=== PATIENT | male | born 1960 | race Caucasian/White ===

== ENCOUNTER 2019-03-02 15:38 | Emergency (ER) | payer MEDICAID ==
--- NOTE | 2019-03-02 15:32 | US ---
EXAMINATION TYPE: US venous doppler duplex LE LT DATE OF EXAM: 03/02/2019 3:21 PM COMPARISON: NONE CLINICAL HISTORY: I82.409 DEEP VEIN THROMBOSIS. Skin redness with heat, pain and swelling left leg x 2 days with calf pain; fever and chills SIDE PERFORMED: Left TECHNIQUE: The lower extremity deep venous system is examined utilizing real time linear array sonog morgan with graded compression, doppler sonography and color-flow sonography. VESSELS IMAGED: Common Femoral Vein Deep Femoral Vein Greater Saphenous Vein * Femoral Vein Popliteal Vein Small Saphenous Vein * Proximal Calf Veins (* superficial vessels) Left Leg: Is positive for non occluding DVT in mid/distal Left Popliteal Vein and upper calf veins; couple of lymph nodes seen in left groin with larger node = 5.1 x 2.4 x 1.9cm. IMPRESSION: 1. Left lower extremity deep venous thrombosis which is nonoccluding in the mid to distal popliteal v ein and extending into the calf region. 2. Irregular lymphadenopathy within the inguinal region
[2019-03-02 16:05] VITALS: PULSE 84; RESP 18
--- NOTE | 2019-03-02 16:11 | ED ---
Extremity Problem HPI - General Chief complaint: Extremity Problem,Nontraumatic Stated complaint: DVT, Sent over from ultrasound Time Seen by Provider: 03/02/19 15:58 Source: patient, RN notes reviewed, old records reviewed Mode of arrival: wheelchair Limitations: no limitations - History of Present Illness Initial comments: This is a 58-year-old male the ER for evaluation history of lymphedema vascular disease, cellulitis coming in today with significantly swollen left lower Shorty. Patient outpatient Positive for DVT. No Recent Travel History No Sick Contacts No Chest Pain or Shortness of Breath. Patient Has No Prior History of DVT and Currently Any Medications, No Recent Change in Medications No Trauma. MD Complaint: extremity pain, extremity swelling, other (Left lower) -: days(s) Location: left, lower extremity History of Same: No Radiation: none Severity scale (1-10): 6 Quality: aching Consistency: constant Improves with: nothing Worsens with: nothing Associated Symptoms: denies other symptoms - Related Data Home Medications Medication Instructions Recorded Confirmed Bisoprol/Hydrochlorothiazide 1 tab PO DAILY 03/02/19 03/02/19 [Bisoprolol-Hctz 5-6.25 mg Tab] Cetirizine HCl [Zyrtec] 10 mg PO DAILY 03/02/19 03/02/19 Losartan Potassium 50 mg PO DAILY 03/02/19 03/02/19 Meclizine [Antivert] 12.5 mg PO TID 03/02/19 03/02/19 Sulfamethoxazole/Trimethoprim 1 tab PO BID 03/02/19 03/02/19 [Bactrim DS 800-160 mg] Previous Rx's Medication Instructions Recorded Apixaban [Eliquis Starter Pack 0 mg PO DIRECTED 30 Days #1 pack 03/02/19 (for VTE)] Allergies Allergy/AdvReac Type Severity Reaction Status Date / Time No Known Allergies Allergy Verified 03/02/19 16:29 Review of Systems ROS Statement: Those systems with pertinent positive or pertinent negative responses have been documented in the HPI. ROS Other: All systems not noted in ROS Statement are negative. Past Medical History Past Medical History: Deep Vein Thrombosis (DVT), Hypertension Additional Past Medical History / Comment(s): lower ext cellulitis History of Any Multi-Drug Resistant Organisms: None Reported Past Psychological History: No Psychological Hx Reported Smoking Status: Never smoker Past Alcohol Use History: None Reported Past Drug Use History: None Reported General Exam Limitations: no limitations General appearance: alert, in no apparent distress Head exam: Present: atraumatic, normocephalic, normal inspection Eye exam: Present: normal appearance, PERRL, EOMI. Absent: scleral icterus, conjunctival injection, periorbital swelling ENT exam: Present: normal exam, mucous membranes moist Neck exam: Present: normal inspection. Absent: tenderness, meningismus, lymphadenopathy Respiratory exam: Present: normal lung sounds bilaterally. Absent: respiratory distress, wheezes, rales, rhonchi, stridor Cardiovascular Exam: Present: regular rate, normal rhythm, normal heart sounds. Absent: systolic murmur, diastolic murmur, rubs, gallop, clicks GI/Abdominal exam: Present: soft, normal bowel sounds. Absent: distended, tenderness, guarding, rebound, rigid Extremities exam: Present: normal inspection, full ROM, normal capillary refill, other (Tender lower extremity with erythema and tenderness to area). Absent: tenderness, pedal edema, joint swelling, calf tenderness Back exam: Present: normal inspection Neurological exam: Present: alert, oriented X3, CN II-XII intact Psychiatric exam: Present: normal affect, normal mood Skin exam: Present: warm, dry, intact, normal color. Absent: rash Course Vital Signs 03/02/19 03/02/19 15:54 18:06 Temperature 99.4 F 103.1 F H Pulse Rate 84 84 Respiratory 18 18 Rate Blood Pressure 134/77 142/58 O2 Sat by Pulse 99 98 Oximetry - Reevaluation(s) Reevaluation #1: Spoke with patient at length regarding findings of DVT inpatient versus outpatient treatment. They will outpatient treatment at this time, no chest pain or shortness of breath Medical Decision Making - Medical Decision Making 58 male the ER for evaluation positive DVT on ultrasound. Patient can be discharged home on Eliquis Disposition Clinical Impression: Deep vein thrombosis (DVT) of left lower extremity Disposition: HOME SELF-CARE Condition: Good Instructions (If sedation given, give patient instructions): Deep Vein Thrombosis (ED) Prescriptions: Apixaban [Eliquis Starter Pack (for VTE)] 0 mg PO DIRECTED 30 Days #1 pack Is patient prescribed a controlled substance at d/c from ED?: No Referrals: Leandro Hector DO [Primary Care Provider] - 1-2 days
[2019-03-02] MEDS ORDERED: APIXABAN 5 MG TAB PO STA (17:01)
[2019-03-02] MEDS ORDERED: IBUPROFEN 600 MG TAB PO STA (17:56)
[2019-03-02 18:07] VITALS: BP 142/58; TEMP 103.1
== END 2019-03-02 18:07 | disposition home or self-care (01) ==
LOC: EC 15:38
DX: I82.402 Acute embolism and thrombosis of unspecified deep veins of left lower extremity (principal); I10 Essential (primary) hypertension; Z79.899 Other long term (current) drug therapy
CPT/HCPCS: 99284

== ENCOUNTER 2019-04-16 14:13 | Inpatient (IN) | payer MEDICAID ==
--- NOTE | 2019-04-16 15:37 | ED ---
Recheck HPI - General Source: patient Mode of arrival: ambulatory Limitations: no limitations <Radha Lockhart - Last Filed: 04/16/19 19:01> <Pallavi Davila - Last Filed: 04/18/19 23:41> - General Chief Complaint: Recheck/Abnormal Lab/Rx Stated Complaint: cellulitis Time Seen by Provider: 04/16/19 14:30 - History of Present Illness Initial Comments: 38-year-old male presenting for evaluation of left leg cellulitis x 1 day. Patient states yesterday he began to develop flu-like symptoms, he states this is how he feels when his cellulitis begins. 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 Patient states the redness has been spreading. Patient denies any severe pain he states is very mild that leg feels tight. Patient states he recently had a deviated thrombosis upon eliquis for left lower extremity. Patient states he is evaluated at urgent care facility presents emergency department because he has been on dual antibiotic therapy for cellulitis outpatient and they feel this is failed antibiotic therapy. Patient was on clindamycin. Patient currently complaining of chills, denies loss of sensation, numbness, tingling. Denies CP or SOB. States complaint with anti coagulation (Radha Lockhart) - Related Data Home Medications Medication Instructions Recorded Confirmed Bisoprolol/Hydrochlorothiazide 1 tab PO DAILY 03/02/19 04/16/19 [Bisoprolol-Hctz 5-6.25 mg Tab] Cetirizine HCl [Zyrtec] 10 mg PO DAILY 03/02/19 04/16/19 Losartan Potassium 50 mg PO DAILY 03/02/19 04/16/19 Apixaban [Eliquis] 5 mg PO BID 04/16/19 04/16/19 Allergies Allergy/AdvReac Type Severity Reaction Status Date / Time No Known Allergies Allergy Verified 04/16/19 16:10 Review of Systems ROS Other: All systems not noted in ROS Statement are negative. <Radha Lockhart - Last Filed: 04/16/19 19:01> ROS Other: All systems not noted in ROS Statement are negative. <Pallavi Davila - Last Filed: 04/18/19 23:41> ROS Statement: Those systems with pertinent positive or pertinent negative responses have been documented in the HPI. Past Medical History Past Medical History: Deep Vein Thrombosis (DVT), Hypertension Additional Past Medical History / Comment(s): lower ext cellulitis History of Any Multi-Drug Resistant Organisms: None Reported Past Psychological History: No Psychological Hx Reported Smoking Status: Never smoker Past Alcohol Use History: None Reported Past Drug Use History: None Reported - Past Family History Father Family Medical History: Cancer Additional Family Medical History / Comment(s): LUNG <Radha Lockhart - Last Filed: 04/16/19 19:01> General Exam Limitations: no limitations <Radha Lockhart - Last Filed: 04/16/19 19:01> - General Exam Comments Initial Comments: General: The patient is awake and alert, in no distress Eye: Pupils are equal, round and reactive to light, extra-ocular movements are intact. No nystagmus. There is normal conjunctiva bilaterally. No signs of icterus. Cardiovascular: There is a regular rate and rhythm. No murmur, rub or gallop is appreciated. Respiratory: Lungs are clear to auscultation, respirations are non-labored, breath sounds are equal. No wheezes, stridor, rales, or rhonchi. Musculoskeletal: Normal ROM, no tenderness. Strength 5/5. Sensation intact. DP Pulses equal bilaterally 2+. Neurological: A&O x 3. CN II-XII intact grossly, There are no obvious motor or sensory deficits. Coordination appears grossly intact. Speech is normal. Skin: Skin is warm and dry and no rashes or lesions are noted. No lower extremity pitting edema. There is noted extensive circumferential left leg erythema, warmth. No blistering or vesicular lesions. No pain out of proportion. (-) Lee's. No masses of calf or point localized calf pain. No crepitus to palpation. Psychiatric: Cooperative, appropriate mood & affect, normal judgment. (Radha Lockhart) Course Vital Signs 04/16/19 04/16/19 14:25 16:16 Temperature 99.9 F H Pulse Rate 20 L 79 Respiratory 18 16 Rate Blood Pressure 128/68 123/71 O2 Sat by Pulse 99 98 Oximetry Medical Decision Making - Lab Data Result diagrams: 04/16/19 16:11 04/16/19 15:40 <Radha Lockhart - Last Filed: 04/16/19 19:01> - Lab Data Result diagrams: 04/18/19 05:27 04/18/19 05:27 <Pallavi Davila - Last Filed: 04/18/19 23:41> - Medical Decision Making 38-year-old male presenting for evaluation of left leg celluliitis x 1 day. There is obvious warm erythematous cellulitis circumferential the left lower leg, given the size of the affected area and failure of outpatient antibiotics if the patient should be admitted for IV antibiotics and monitoring. Patient does not appear overtly toxic. Patient does have low-grade fever on arrival. Patient was provided Rocephin as well as vancomycin hours department. BLood culture pending lactic WNL. Patient admitted to floor after Dr. Davila discussed case with admitting provider. She is agreeable with care plan. (Radha Lockhart) I was available for consultation in the emergency department. The history and physical exam were done by the midlevel provider. I was consulted for this patients care. I reviewed the case with the midlevel provider and based on their presentation of the patient, I agree with the assessment, medical decision making and plan of care as documented. As the patient failed outpatient treatment, I recommended hospitalization. Chart was dictated using [employer] dictation software. Attempts were made to correct any dictation errors however some typographical errors may persist. (Pallavi Davila) - Lab Data Lab Results 04/16/19 04/16/19 04/16/19 Range/Units 15:40 15:40 16:11 WBC 19.2 H (3.8-10.6) k/uL RBC 4.42 (4.30-5.90) m/uL Hgb 12.7 L (13.0-17.5) gm/dL Hct 39.0 (39.0-53.0) % MCV 88.3 (80.0-100.0) fL MCH 28.7 (25.0-35.0) pg MCHC 32.5 (31.0-37.0) g/dL RDW 13.8 (11.5-15.5) % Plt Count 263 (150-450) k/uL Neutrophils % 94 % Lymphocytes % 2 % Monocytes % 3 % Eosinophils % 0 % Basophils % 1 % Neutrophils # 18.0 H (1.3-7.7) k/uL Lymphocytes # 0.3 L (1.0-4.8) k/uL Monocytes # 0.6 (0-1.0) k/uL Eosinophils # 0.1 (0-0.7) k/uL Basophils # 0.2 (0-0.2) k/uL Sodium 137 (137-145) mmol/L Potassium 3.8 (3.5-5.1) mmol/L Chloride 101 (98-107) mmol/L Carbon Dioxide 26 (22-30) mmol/L Anion Gap 10 mmol/L BUN 19 (9-20) mg/dL Creatinine 1.32 H (0.66-1.25) mg/dL Est GFR (CKD-EPI)AfAm 69 (>60 ml/min/1.73 sqM) Est GFR (CKD-EPI)NonAf 60 (>60 ml/min/1.73 sqM) Glucose 123 H (74-99) mg/dL Plasma Lactic Acid Jack 1.8 (0.7-2.0) mmol/L Calcium 8.9 (8.4-10.2) mg/dL Total Bilirubin 0.7 (0.2-1.3) mg/dL AST 22 (17-59) U/L ALT 17 L (21-72) U/L Alkaline Phosphatase 67 (38-126) U/L Total Protein 6.9 (6.3-8.2) g/dL Albumin 3.8 (3.5-5.0) g/dL 04/17/19 04/17/19 04/18/19 Range/Units 06:27 06:27 05:27 WBC 12.1 H (3.8-10.6) k/uL RBC 4.21 L (4.30-5.90) m/uL Hgb 12.5 L (13.0-17.5) gm/dL Hct 37.1 L (39.0-53.0) % MCV 88.0 (80.0-100.0) fL MCH 29.7 (25.0-35.0) pg MCHC 33.7 (31.0-37.0) g/dL RDW 14.0 (11.5-15.5) % Plt Count 232 (150-450) k/uL Neutrophils % 87 % Lymphocytes % 7 % Monocytes % 5 % Eosinophils % 1 % Basophils % 0 % Neutrophils # 10.4 H (1.3-7.7) k/uL Lymphocytes # 0.8 L (1.0-4.8) k/uL Monocytes # 0.6 (0-1.0) k/uL Eosinophils # 0.1 (0-0.7) k/uL Basophils # 0.1 (0-0.2) k/uL Sodium 137 (137-145) mmol/L Potassium 3.5 (3.5-5.1) mmol/L Chloride 105 (98-107) mmol/L Carbon Dioxide 24 (22-30) mmol/L Anion Gap 8 mmol/L BUN 16 (9-20) mg/dL Creatinine 1.16 1.09 (0.66-1.25) mg/dL Est GFR (CKD-EPI)AfAm 81 87 (>60 ml/min/1.73 sqM) Est GFR (CKD-EPI)NonAf 70 75 (>60 ml/min/1.73 sqM) Glucose 103 H (74-99) mg/dL Plasma Lactic Acid Jack (0.7-2.0) mmol/L Calcium 8.2 L (8.4-10.2) mg/dL Total Bilirubin (0.2-1.3) mg/dL AST (17-59) U/L ALT (21-72) U/L Alkaline Phosphatase (38-126) U/L Total Protein (6.3-8.2) g/dL Albumin (3.5-5.0) g/dL 04/18/19 Range/Units 05:27 WBC 9.8 (3.8-10.6) k/uL RBC 4.11 L (4.30-5.90) m/uL Hgb 12.1 L (13.0-17.5) gm/dL Hct 37.3 L (39.0-53.0) % MCV 90.8 (80.0-100.0) fL MCH 29.6 (25.0-35.0) pg MCHC 32.6 (31.0-37.0) g/dL RDW 13.8 (11.5-15.5) % Plt Count 240 (150-450) k/uL Neutrophils % % Lymphocytes % % Monocytes % % Eosinophils % % Basophils % % Neutrophils # (1.3-7.7) k/uL Lymphocytes # (1.0-4.8) k/uL Monocytes # (0-1.0) k/uL Eosinophils # (0-0.7) k/uL Basophils # (0-0.2) k/uL Sodium (137-145) mmol/L Potassium (3.5-5.1) mmol/L Chloride (98-107) mmol/L Carbon Dioxide (22-30) mmol/L Anion Gap mmol/L BUN (9-20) mg/dL Creatinine (0.66-1.25) mg/dL Est GFR (CKD-EPI)AfAm (>60 ml/min/1.73 sqM) Est GFR (CKD-EPI)NonAf (>60 ml/min/1.73 sqM) Glucose (74-99) mg/dL Plasma Lactic Acid Jack (0.7-2.0) mmol/L Calcium (8.4-10.2) mg/dL Total Bilirubin (0.2-1.3) mg/dL AST (17-59) U/L ALT (21-72) U/L Alkaline Phosphatase (38-126) U/L Total Protein (6.3-8.2) g/dL Albumin (3.5-5.0) g/dL Disposition Is patient prescribed a controlled substance at d/c from ED?: No Time of Disposition: 16:36 Decision to Admit Reason: Admit from EC Decision Date: 04/16/19 Decision Time: 16:37 <Radha Lockhart - Last Filed: 04/16/19 19:01> <Pallavi Davila - Last Filed: 04/18/19 23:41> Clinical Impression: Cellulitis of left lower extremity Disposition: ADMITTED IP TO THIS [facility] Condition: Stable
[2019-04-16 16:09] LABS: Albumin 3.8 g/dL (3.5-5.0); Calcium 8.9 mg/dL (8.4-10.2); Potassium 3.8 mmol/L (3.5-5.1); Total Bilirubin 0.7 mg/dL (0.2-1.3); Total Protein 6.9 g/dL (6.3-8.2)
[2019-04-16] MEDS ORDERED: VANCOMYCIN IV PER PHARMACY 1 EACH MISC MISCELLANE PRN (16:35)
[2019-04-16] MEDS ORDERED: SODIUM CHLORIDE 0.9% 500 ML 500 ML IV ONE (16:36)
[2019-04-16] MEDS ORDERED: SODIUM CHLORIDE 0.9% 1,000 ML IV ONE (16:36)
[2019-04-16 16:37] LABS: Basophils # (A) 0.2 k/uL (0-0.2); Basophils % (A) 1 %; Eosinophils # (A) 0.1 k/uL (0-0.7); Eosinophils % (A) 0 %; HGB 12.7 gm/dL (13.0-17.5); Lymphocytes # (A) 0.3 k/uL (1.0-4.8); Lymphocytes % (A) 2 %; MCH 28.7 pg (25.0-35.0); MCHC 32.5 g/dL (31.0-37.0); MCV 88.3 fL (80.0-100.0); Mean Platelet Volume 7.3; Monocytes # (A) 0.6 k/uL (0-1.0); Monocytes % (A) 3 %; Neutrophils % (A) 94 %; Platelet Count 263 k/uL (150-450); RBC 4.42 m/uL (4.30-5.90); RDW 13.8 % (11.5-15.5); WBC 19.2 k/uL (3.8-10.6)
[2019-04-16] MEDS ORDERED: MORPHINE SULFATE 4 MG/ML SYRINGE IV PRN (16:37)
[2019-04-16] MEDS ORDERED: ONDANSETRON 4 MG/2 ML VIAL IVP PRN (16:37)
[2019-04-16] MEDS ORDERED: NALOXONE 0.4 MG/ML 1 ML VIAL IV PRN (16:37)
[2019-04-16] MEDS ORDERED: ACETAMINOPHEN TAB 325 MG TAB PO PRN (16:37)
[2019-04-16] MEDS ORDERED: VANCOMYCIN 2,250 MG in SODIUM CHLORIDE 0.9% 500 ML 500 ML IVPB STA (16:43)
--- NOTE | 2019-04-16 16:54 | XR ---
EXAMINATION TYPE: XR tibia fibula LT DATE OF EXAM: 04/16/2019 COMPARISON: NONE HISTORY: Cellulitis. Pain. TECHNIQUE: 4 views FINDINGS: There is subcutaneous edema around the lower leg. Tibia and fibula appear intact. I see no fracture nor dislocation. There are moderate plantar and Achilles calcaneal spurs. IMPRESSION: Calcaneal spurring. No fracture. Soft tissue swelling.
--- NOTE | 2019-04-16 18:15 | US ---
EXAMINATION TYPE: US venous doppler duplex LE LT DATE OF EXAM: 04/16/2019 6:06 PM COMPARISON: 03/02/2019 CLINICAL HISTORY: leg redness swelling. Left leg redness SIDE PERFORMED: Left TECHNIQUE: The lower extremity deep venous system is examined utilizing real time linear array sonog morgan with graded compression, doppler sonography and color-flow sonography. VESSELS IMAGED: External Iliac Vein (EIV) Common Femoral Vein Deep Femoral Vein Greater Saphenous Vein * Femoral Vein Popliteal Vein Small Saphenous Vein * Proximal Calf Veins (* superficial vessels) Left Leg: Enlarged lymph nodes within left groin/ Non-occluding Thrombus still present within left p opliteal veins as seen on previous exam IMPRESSION: There is popliteal chronic deep venous thrombosis similar to old exam. Enlarged 3 x 1.8 c m left inguinal lymph node. no evidence of any new deep venous thrombosis.
--- NOTE | 2019-04-16 20:34 | P.HPIM ---
History of Present Illness H&P Date: 04/16/19 Chief Complaint: Left lower extremity swelling and redness The patient is a 58-year-old morbidly obese male with a past with his history of essential hypertension, recurrent left lower extremity cellulitis And recent left lower extremity DVT diagnosed approximately 6 weeks ago that presents to the ER via private vehicle with chief complaint of left lower extremity redness. Apparently the patient woke up this morning and recognized that his left lower extremity was extremely swollen and red, he reports mild pain radiated admitted 2-3 out of 10, he also reports subjective fevers and chills, and nausea. The patient reports that he's been on DOAC with eliquis for the last 6 weeks, he also reports being diagnosed with cellulitis at that time. The patient denies any chest pain denies shortness of breath, denies abdominal pain or change in bowel habits, he denies any constipation or diarrhea. He denies any focal weakness or slurred speech In the ER the patient had a comprehensive workup x-ray of the left lower extremity showed calcaneal spurring with no fracture only soft tissue swelling, the left looks from a venous Doppler indicating chronic left lower leg DVT and a large lymph node with a left groin. Admission labs notable for a leukocytosis o f 19.2 with a left shift, and chemistries his creatinine was 1.32. The patient was started on empiric IV antibiotics with Rocephin and vancomycin and recommended for admission for cellulitis. Review of Systems Pertinent positives per HPI all other review of system is otherwise negative. Past Medical History Past Medical History: Deep Vein Thrombosis (DVT), Hypertension Additional Past Medical History / Comment(s): lower ext cellulitis History of Any Multi-Drug Resistant Organisms: None Reported Past Anesthesia/Blood Transfusion Reactions: No Reported Reaction Past Psychological History: No Psychological Hx Reported Smoking Status: Never smoker Past Alcohol Use History: None Reported Past Drug Use History: None Reported - Past Family History Father Family Medical History: Cancer Additional Family Medical History / Comment(s): LUNG Medications and Allergies Home Medications Medication Instructions Recorded Confirmed Type Bisoprolol/Hydrochlorothiazide 1 tab PO DAILY 03/02/19 04/16/19 History [Bisoprolol-Hctz 5-6.25 mg Tab] Cetirizine HCl [Zyrtec] 10 mg PO DAILY 03/02/19 04/16/19 History Losartan Potassium 50 mg PO DAILY 03/02/19 04/16/19 History Apixaban [Eliquis] 5 mg PO BID 04/16/19 04/16/19 History Allergies Allergy/AdvReac Type Severity Reaction Status Date / Time No Known Allergies Allergy Verified 04/16/19 16:10 Physical Exam Vitals: Vital Signs Temp Pulse Pulse Resp BP BP Pulse Ox 04/16/19 20:00 99.7 F H 81 16 142/72 95 04/16/19 18:05 98.7 F 79 17 138/71 96 04/16/19 18:00 82 16 126/75 98 04/16/19 16:16 79 16 123/71 98 04/16/19 14:25 99.9 F H 20 L 18 128/68 99 Intake and Output 04/16/19 04/16/19 04/16/19 06:59 14:59 22:59 Other: Voiding Method Urinal Weight 158.757 kg Constitutional: No acute distress, conversant, pleasant Eyes: Anicteric sclerae, moist conjunctiva, no lid-lag, PERRLA ENMT: NC/AT,Oropharynx clear, no erythema, exudates Neck:Supple, FROM, no masses, or JVD, No carotid bruits; No thyromegaly Lungs: Clear to auscultation, Clear to percussion, Normal respiratory effort, no accessory muscle use Cardiovascular: Heart regular in rate and rhythm, No murmurs, gallops, or rubs no peripheral edema Abdominal: Soft Nontender, nom distended, no guarding, no rebound or rigidity, Normoactive bowel sounds No hepatomegaly, No splenomegaly, No palpable mass No abdominal wall hernia noted Skin: Normal temperature, tone, texture, turgor, No induration No subcutaneous nodules, No rash, lesions, No ulcers Extremities: The left lower extremity with extensive circumferential left leg erythema extending from the ankle up to just below the knee, without any blistering or vesicles or lesions, negative Homans. Psychiatric: Alert and oriented to person, place and time, Appropriate affect Intact judgement Neuro: Muscles Strength 5/5 in all 4 extremities, Sensation to light touch grossly present throughout, Cranial nerves II-XII grossly intact. No focal sensory deficits Results CBC & Chem 7: 04/16/19 16:11 04/16/19 15:40 Labs: Abnormal Lab Results - Last 24 Hours (Table) 04/16/19 04/16/19 Range/Units 15:40 16:11 WBC 19.2 H (3.8-10.6) k/uL Hgb 12.7 L (13.0-17.5) gm/dL Neutrophils # 18.0 H (1.3-7.7) k/uL Lymphocytes # 0.3 L (1.0-4.8) k/uL Creatinine 1.32 H (0.66-1.25) mg/dL Glucose 123 H (74-99) mg/dL ALT 17 L (21-72) U/L Thrombosis Risk Factor Assmnt - Choose All That Apply Each Factor Represents 1 point: Obesity (BMI >25), Swollen legs (current) Each Risk Factor Represents 3 Points: History of DVT/PE Thrombosis Risk Factor Assessment Total Risk Factor Score: 5 Thrombosis Risk Factor Assessment Level: High Risk Assessment and Plan Assessment: Sepsis left lower extremity cellulitis Essential hypertension Chronic left lower extremity DVT Morbid obesity Plan: The patient is admitted anticipated greater than 2 midnight stay with sepsis secondary to left lower extremity cellulitis presenting with complaints of left lower extremity erythema and subjective fevers and chills found to have a leukocytosis of 19 and started on empiric IV antibiotics we'll continue with vancomycin and Zosyn, blood cultures have been ordered, continue supportive therapy with antiemetics and antipyretics as needed. Lasts the nursing staff to marked level of his erythema to monitor daily for gradual resolution of the cellulitis. The patient is continued on his Eliquis for his chronic L LE DVT. CODE STATUS: Full code Discussed plan of care with: Patient and his Anticipated discharge: 1-[address]: Home
[2019-04-16] MEDS: APIXABAN 5 MG TAB PO SCH (21:05)
[2019-04-16] MEDS: Acetaminophen-Codeine 300-30mg TAB PO PRN (21:05)
[2019-04-17] MEDS ORDERED: HEPARIN SODIUM,PORCINE 5,000 UNIT/ML 1 ML VIAL SQ SCH
[2019-04-17] MEDS: PIPERACILLIN-TAZOBACTAM 3.375 GM in SODIUM CHLORIDE 0.9% 100 ML IVPB SCH ×3 (00:33→16:21)
[2019-04-17 07:53] LABS: Basophils # (A) 0.1 k/uL (0-0.2); Basophils % (A) 0 %; Eosinophils # (A) 0.1 k/uL (0-0.7); Eosinophils % (A) 1 %; HCT 37.1 % (39.0-53.0); HGB 12.5 gm/dL (13.0-17.5); Lymphocytes # (A) 0.8 k/uL (1.0-4.8); Lymphocytes % (A) 7 %; MCH 29.7 pg (25.0-35.0); MCHC 33.7 g/dL (31.0-37.0); Mean Platelet Volume 5.9; Monocytes # (A) 0.6 k/uL (0-1.0); Monocytes % (A) 5 %; Neutrophils # (A) 10.4 k/uL (1.3-7.7); Neutrophils % (A) 87 %; Platelet Count 232 k/uL (150-450); RBC 4.21 m/uL (4.30-5.90); WBC 12.1 k/uL (3.8-10.6)
[2019-04-17 07:56] LABS: Calcium 8.2 mg/dL (8.4-10.2); Potassium 3.5 mmol/L (3.5-5.1)
[2019-04-17] MEDS: Acetaminophen-Codeine 300-30mg TAB PO PRN ×3 (08:00→19:51)
[2019-04-17] MEDS: BISOPROLOL-HCTZ 5-6.25 MG 1 EACH TAB PO SCH (08:00)
[2019-04-17] MEDS: LOSARTAN 50 MG TAB PO SCH (08:01)
[2019-04-17] MEDS: APIXABAN 5 MG TAB PO SCH ×2 (08:01→19:51)
[2019-04-17] MEDS: LORATADINE 10 MG TAB PO SCH (08:01)
[2019-04-17] MEDS: VANCOMYCIN 2,250 MG in SODIUM CHLORIDE 0.9% 500 ML 500 ML IVPB SCH (10:58)
[2019-04-17] MEDS: traMADol 50 MG TAB PO PRN (16:20)
--- NOTE | 2019-04-17 19:06 | P.PN ---
Subjective Progress Note Date: 04/17/19 (Delayed charting seen at 1430) Principal diagnosis: Left leg swelling and erythema Patient is a 58-year-old male past medical history of hypertension, left lower extremity DVT, chronic left lower extremity lymphedema, obstructive sleep apnea, and morbid obesity who presented to the emergency department due to worsening erythema and swelling of his left lower extremity. In the ER he underwent an extensive evaluation. Initial vital signs showed a slight elevation in temperature of 99.9. Initial laboratory analysis showed an elevated white blood cell count 19.2 and elevated creatinine of 1.32. Tib-fib x-ray showed calcaneal spurring but no soft tissue swelling. Venous Doppler showed enlarged lymph nodes within the left groin and a nonoccluding thrombus present in the left popliteal vein. His diagnosis of left lower extremity cellulitis. He was started on IV fluids and vancomycin. He was admitted for further monitoring. On the morning of 04/17 his white blood cell count had improved but the area of erythema had gone beyond the line of demarcation. Patient actually has had of episode of left lower extremity cellulitis approximately 6 weeks ago treated by first a course of Bactrim and then a course of Keflex. He reports recurrent bouts of cellulitis in his left lower extremity over the last several years. He also has chronic left lower extremity edema for which he takes multiple diuretics. Patient seen and examined at bedside. He denies any chest pain or shortness of breath. He has a having a significant headache. He denies any nausea or vomiting. He does report some pain in his left leg and states that the swelling is decreased. The intensity of the redness is also fading. Objective - Vital Signs Vital signs: Vital Signs Temp 98.0 F 04/17/19 14:05 Pulse 71 04/17/19 14:05 Resp 16 04/17/19 14:05 BP 121/76 04/17/19 14:05 Pulse Ox 97 04/17/19 14:05 Intake & Output 04/16/19 04/17/19 04/17/19 18:59 06:59 18:59 Intake Total 100 750 Output Total 200 350 Balance -100 400 Weight 158.757 kg Intake: Intake, IV Titration 100 Amount Piperacillin-Tazobactam 3 100 .375 gm In Sodium Chloride 0.9% 100 ml @ 25 mls/hr IVPB Q8HR [facility] Rx# :[id number] Oral 750 Output: Urine 200 350 Other: Voiding Method Urinal Urinal Urinal - Exam General: non toxic, no distress, appears at stated age, obese Derm: Left lower extremity with erythema and warmth extending from left ankle to left knee, slightly past the line of demarcation, warm, dry Head: atraumatic, normocephalic, symmetric Eyes: EOMI, no lid lag, anicteric sclera Mouth: no lip lesion, mucus membranes moist Cardiovascular: S1S2 reg, no murmur, positive posterior tibial pulse bilateral, Lungs: Decreased breath sounds bilateral, no rhonchi, no rales , no accessory muscle use Abdominal: soft, nontender to palpation, no guarding, no appreciable organomegaly Ext: no gross muscle atrophy, left lower extremity nonpitting 2+ edema, no contractures Neuro: CN II-XI grossly intact, no focal neuro deficits Psych: Alert, oriented, appropriate affect - Labs CBC & Chem 7: 04/17/19 06:27 04/17/19 06:27 Labs: Abnormal Lab Results - Last 24 Hours (Table) 04/17/19 04/17/19 Range/Units 06:27 06:27 WBC 12.1 H (3.8-10.6) k/uL RBC 4.21 L (4.30-5.90) m/uL Hgb 12.5 L (13.0-17.5) gm/dL Hct 37.1 L (39.0-53.0) % Neutrophils # 10.4 H (1.3-7.7) k/uL Lymphocytes # 0.8 L (1.0-4.8) k/uL Glucose 103 H (74-99) mg/dL Calcium 8.2 L (8.4-10.2) mg/dL Microbiology - Last 24 Hours (Table) 04/16/19 15:40 Blood Culture - Preliminary Blood No Growth after 24 hours Assessment and Plan Assessment: Left lower extremity cellulitis associated with subacute DVT -Continue with vancomycin, change Zosyn to Unasyn -IV fluids -Continue with Eliquis -Outpatient lymphedema evaluation -Blood culture negative to date Hypertension, controlled -Continue with beta veena, Cozaar, and diuretics Acute kidney injury likely secondary to infection -Improved -Avoid additional nephrotoxic agents -Follow basic metabolic profile carefully with the use of vancomycin Morbid obesity with BMI 54.8 -Continue structured outpatient weight loss DVT prophylaxis: SCDs Discussed with: Patient, nursing Anticipated discharge: 1-[address]: home A total of 35 minutes was spent on the care of this complex patient more than 50% of the time was spent in counseling and care coordination.
[2019-04-17] MEDS: AMPICILLIN-SULBACTAM 3 GM in SODIUM CHLORIDE 0.9% 100 ML IVPB SCH (23:27)
[2019-04-18] MEDS: VANCOMYCIN 2,250 MG in SODIUM CHLORIDE 0.9% 500 ML 500 ML IVPB SCH ×2 (04:39→22:19)
[2019-04-18] MEDS: traMADol 50 MG TAB PO PRN ×2 (05:05→16:32)
[2019-04-18 07:58] LABS: HCT 37.3 % (39.0-53.0); HGB 12.1 gm/dL (13.0-17.5); MCH 29.6 pg (25.0-35.0); MCHC 32.6 g/dL (31.0-37.0); MCV 90.8 fL (80.0-100.0); Mean Platelet Volume 7.4; Platelet Count 240 k/uL (150-450); RBC 4.11 m/uL (4.30-5.90); RDW 13.8 % (11.5-15.5); WBC 9.8 k/uL (3.8-10.6)
[2019-04-18] MEDS: BISOPROLOL-HCTZ 5-6.25 MG 1 EACH TAB PO SCH (08:54)
[2019-04-18] MEDS: APIXABAN 5 MG TAB PO SCH ×2 (08:54→19:52)
[2019-04-18] MEDS: Acetaminophen-Codeine 300-30mg TAB PO PRN ×2 (08:54→19:52)
[2019-04-18] MEDS: LOSARTAN 50 MG TAB PO SCH (08:54)
[2019-04-18] MEDS: LORATADINE 10 MG TAB PO SCH (08:54)
[2019-04-18] MEDS: AMPICILLIN-SULBACTAM 3 GM in SODIUM CHLORIDE 0.9% 100 ML IVPB SCH ×2 (08:54→16:32)
--- NOTE | 2019-04-18 20:17 | P.PN ---
Subjective Progress Note Date: 04/18/19 (delayed charting seen at 1230) Principal diagnosis: Left leg swelling and erythema Patient is a 58-year-old male past medical history of hypertension, left lower extremity DVT, chronic left lower extremity lymphedema, obstructive sleep apnea, and morbid obesity who presented to the emergency department due to worsening erythema and swelling of his left lower extremity. In the ER he underwent an extensive evaluation. Initial vital signs showed a slight elevation in temperature of 99.9. Initial laboratory analysis showed an elevated white blood cell count 19.2 and elevated creatinine of 1.32. Tib-fib x-ray showed calcaneal spurring but no soft tissue swelling. Venous Doppler showed enlarged lymph nodes within the left groin and a nonoccluding thrombus present in the left popliteal vein. His diagnosis of left lower extremity cellulitis. He was started on IV fluids and vancomycin. He was admitted for further monitoring. On the morning of 04/17 his white blood cell count had improved but the area of erythema had gone beyond the line of demarcation. Patient actually has had of episode of left lower extremity cellulitis approximately 6 weeks ago treated by first a course of Bactrim and then a course of Keflex. He reports recurrent bouts of cellulitis in his left lower extremity over the last several years. He also has chronic left lower extremity edema for which he takes multiple diuretics. He had some improvement in his lower extremity edema and redness by 04/18. Patient seen and examined at bedside. Less of a headache, no chest pain, no nausea, no vomiting, no diarrhea, still with lower extremity pain when ambulating. still with redness. Objective - Vital Signs Vital signs: Vital Signs Temp 98.6 F 04/18/19 18:50 Pulse 91 04/18/19 18:50 Resp 18 04/18/19 18:50 BP 108/68 04/18/19 18:50 Pulse Ox 97 04/18/19 18:50 Intake & Output 04/18/19 04/18/19 04/19/19 06:59 18:59 06:59 Intake Total 740 680 Balance 740 680 Intake: Intake, IV Titration 200 100 Amount Ampicillin-Sulbactam 3 gm 100 100 In Sodium Chloride 0.9% 100 ml @ 200 mls/hr IVPB Q8HR [facility] Rx#:[id number] Piperacillin-Tazobactam 3 100 .375 gm In Sodium Chloride 0.9% 100 ml @ 25 mls/hr IVPB Q8HR [facility] Rx# :[id number] Oral 540 580 Other: Voiding Method Urinal - Exam General: non toxic, no distress, appears at stated age, obese Derm: Left lower extremity with erythema and warmth extending from left ankle to left knee no longer past line of demarcation, less red, warm, dry Head: atraumatic, normocephalic, symmetric Eyes: EOMI, no lid lag, anicteric sclera Mouth: no lip lesion, mucus membranes moist Cardiovascular: S1S2 reg, no murmur, positive posterior tibial pulse bilateral, Lungs: Decreased breath sounds bilateral, no rhonchi, no rales , no accessory muscle use Abdominal: soft, nontender to palpation, no guarding, no appreciable organomegaly Ext: no gross muscle atrophy, left lower extremity nonpitting 2+ edema, no contr actures Neuro: CN II-XI grossly intact, no focal neuro deficits Psych: Alert, oriented, appropriate affect - Labs CBC & Chem 7: 04/18/19 05:27 04/18/19 05:27 Labs: Abnormal Lab Results - Last 24 Hours (Table) 04/18/19 Range/Units 05:27 RBC 4.11 L (4.30-5.90) m/uL Hgb 12.1 L (13.0-17.5) gm/dL Hct 37.3 L (39.0-53.0) % Microbiology - Last 24 Hours (Table) 04/16/19 15:40 Blood Culture - Preliminary Blood No Growth after 48 hours Assessment and Plan Assessment: Left lower extremity cellulitis associated with subacute DVT, chronic lymphedema -Continue with vancomycin, Unasyn -IV fluids -Continue with Eliquis -Outpatient lymphedema evaluation and vascular surgery evaluation -Blood culture negative to date Morbid obesity with BMI 54.8 -Continue structured outpatient weight loss Hypertension, controlled -Continue with beta veena, Cozaar, and diuretics Acute kidney injury likely secondary to infection, resolved DVT prophylaxis: SCDs Discussed with: Patient, nursing Anticipated discharge: in AM Anticipated discharge place: home A total of 20 minutes was spent on the care of this complex patient more than 5 0% of the time was spent in counseling and care coordination.
[2019-04-19] MEDS: AMPICILLIN-SULBACTAM 3 GM in SODIUM CHLORIDE 0.9% 100 ML IVPB SCH ×2 (01:43→07:38)
[2019-04-19] MEDS: APIXABAN 5 MG TAB PO SCH (07:37)
[2019-04-19] MEDS: LORATADINE 10 MG TAB PO SCH (07:37)
[2019-04-19] MEDS: LOSARTAN 50 MG TAB PO SCH (07:37)
[2019-04-19] MEDS: BISOPROLOL-HCTZ 5-6.25 MG 1 EACH TAB PO SCH (07:37)
[2019-04-19 08:03] LABS: HCT 35.1 % (39.0-53.0); HGB 11.7 gm/dL (13.0-17.5); MCH 29.1 pg (25.0-35.0); MCHC 33.2 g/dL (31.0-37.0); MCV 87.8 fL (80.0-100.0); WBC 7.3 k/uL (3.8-10.6)
[2019-04-19 08:04] LABS: Mean Platelet Volume 5.9; Platelet Count 261 k/uL (150-450); RDW 13.6 % (11.5-15.5)
[2019-04-19 08:17] LABS: African American GFR (CKD) >90 (>60 ml/min/1.73 sqM); Anion Gap 7 mmol/L; Blood Urea Nitrogen 10 mg/dL (9-20); Calcium 8.4 mg/dL (8.4-10.2); Carbon Dioxide 27 mmol/L (22-30); Chloride 104 mmol/L (98-107); Glucose 99 mg/dL (74-99); Potassium 3.9 mmol/L (3.5-5.1); Sodium 138 mmol/L (137-145)
[2019-04-19 09:06] VITALS: BP 129/75; PULSE 69; RESP 12; TEMP 98
[2019-04-19] MEDS ORDERED: VANCOMYCIN TROUGH DUE 1 EACH MISC MISCELLANE ONE (16:00)
--- NOTE | 2019-04-19 16:56 | P.DS ---
Providers Date of admission: 04/18/19 15:51 Expected date of discharge: 04/19/19 Attending physician: Omega Cruz MD Primary care physician: Leandro Hector DO Hospital Course: Discharge Diagnosis: Left lower extremity cellulitis associated with subacute DVT Chronic lymphedema Morbid obesity with BMI 54.8 HTN GRACIELA Hospital Course: Patient is a 58-year-old male past medical history of hypertension, left lower extremity DVT, chronic left lower extremity lymphedema, obstructive sleep apnea, and morbid obesity who presented to the emergency department due to worsening erythema and swelling of his left lower extremity. In the ER he underwent an extensive evaluation. Initial vital signs showed a slight elevation in temperature of 99.9. Initial laboratory analysis showed an elevated white blood cell count 19.2 and elevated creatinine of 1.32. Tib-fib x-ray showed calcaneal spurring but and soft tissue swelling. Venous Doppler showed enlarged lymph nodes within the left groin and a nonoccluding thrombus present in the left popliteal vein. His diagnosis of left lower extremity cellulitis. He was started on IV fluids and vancomycin. He was admitted for further monitoring. On the morning of 04/17 his white blood cell count had improved but the area of erythema had gone beyond the line of demarcation. Patient actually has had of episode of left lower extremity cellulitis approximately 6 weeks ago treated by first a course of Bactrim and then a course of Keflex. He reports recurrent bouts of cellulitis in his left lower extremity over the last several years. He also has chronic left lower extremity edema for which he takes multiple diuretics. He had some improvement in his lower extremity edema and redness by 04/18 how ever it was still significant with increased swelling. On 04/19 he had significant improvement in his lower extremity redness and edema. He was determined stable for discharge home. He will complete a course of doxy and augmentin. He will d/w Dr. [place] about referral for [facility] in [place] who helps with lymphedema. He was also given Dr. Lopez of vascular surgery info for evaluation. He can return to work on 04/24. Patient seen and examined at bedside. Doing well, S[place]CLAIR improved, LE edema and warmth improved. Vital signs reviewed and stable. General: non toxic, no distress, appears at stated age Derm: rendess and swelling in LLE from calf to knee, warm, dry Head: atraumatic, normocephalic, symmetric Eyes: EOMI, no lid lag, anicteric sclera Mouth: no lip lesion, mucus membranes moist Cardiovascular: S1S2 reg, no murmur, positive posterior tibial pulse bilateral, Lungs: CTA bilateral, no rhonchi, no rales , no accessory muscle use Abdominal: soft, nontender to palpation, no guarding, no appreciable organomegaly Ext: no gross muscle atrophy, no edema, no contractures Neuro: CN II-XI grossly intact, no focal neuro deficits Psych: Alert, oriented, appropriate affect A total of 35 minutes of time were spent preparing this complex discharge summary . Pertinent Studies: Tib-fib x-ray showed calcaneal spurring but and soft tissue swelling. Venous Doppler showed enlarged lymph nodes within the left groin and a nonoccluding thrombus present in the left popliteal vein. Patient Condition at Discharge: Stable Plan - Discharge Summary Discharge Rx Participant: No New Discharge Prescriptions: New Amoxic-Pot Clav 875-125Mg [Augmentin 875-125] 1 tab PO Q12HR #8 tablet Doxycycline [Vibramycin] 100 mg PO BID #14 cap Continue Losartan Potassium 50 mg PO DAILY Cetirizine HCl [Zyrtec] 10 mg PO DAILY Bisoprolol/Hydrochlorothiazide [Bisoprolol-Hctz 5-6.25 mg Tab] 1 tab PO DAILY Apixaban [Eliquis] 5 mg PO BID Discharge Medication List Bisoprolol/Hydrochlorothiazide [Bisoprolol-Hctz 5-6.25 mg Tab] 1 tab PO DAILY 03/02/19 [History] Cetirizine HCl [Zyrtec] 10 mg PO DAILY 03/02/19 [History] Losartan Potassium 50 mg PO DAILY 03/02/19 [History] Apixaban [Eliquis] 5 mg PO BID 04/16/19 [History] Amoxic-Pot Clav 875-125Mg [Augmentin 875-125] 1 tab PO Q12HR #8 tablet 04/19/19 [Rx] Doxycycline [Vibramycin] 100 mg PO BID #14 cap 04/19/19 [Rx] Follow up Appointment(s)/Referral(s): Leandro Hector DO [Primary Care Provider] - 04/25/19 2:00 pm Marcia Lopez DO [STAFF PHYSICIAN] - 04/26/19 11:15 am ([place] Office. # ) Activity/Diet/Wound Care/Special Instructions: Activity: [] Diet: [] Wound Care: [] Special Instructions: Please use medication as discussed. Please follow-up with family doctor in the next 2 days. Please return to emergency room if the symptoms increase or worsen or for any other concerns. Therapy: [facility] therapist [place] [address] [address] Discharge/Stand Alone Forms: Work/Release Restrictions Form Discharge Disposition: HOME SELF-CARE
--- NOTE | 2019-04-25 10:22 | CDI ---
Documentation Clarification Form Date: 04/25/19 From: Cristal Cam Phone: If you have a question regarding this query, please contact Gia Roman at [phone] between 8am and 5pm. Admit Date: 04/18/2019 3:51:00 PM Patient Name: Primitivo Anderson Visit Number: [id number] Discharge Date: 04/19/2019 9:57:00 AM ATTENTION: The Clinical Documentation Specialists (CDI) and [facility] Coding Staff appreciate your assistance in clarifying documentation. Please respond to the clarification below the line at the bottom and electronically sign. The CDI & [facility] Coding staff will review the response and follow-up if needed. Please note: Queries are made part of the Legal Health Record. If you have any questions, please contact the author of this message via ITS. Dr. Joycelyn Guan The patient presented with cellulitis of the left lower extremity and elevated WBC. History/Risk Factors: Cellulitis Clinical Indicators: Elevated WBC, elevated temperature WBC: 19.2 Lactic acid: 1.8 Blood cultures: No growth. Vitals signs on admission: T. 99.9, P. 79, R. 18, BP 128/68 Treatment: Antibiotics: IV Rocephin, IV Unasyn, IV Zosyn, IV Vancomycin IV Bolus: 2 liters In your professional opinion, please clarify if these findings signify one of the following conditions, whether the condition is present on admission, and cause, if known: Condition Sepsis ruled out SIRS, without underlying infectious process Sepsis Severe Sepsis Other, please specify Unable to determine Identify the (suspected) organism Sepsis ruled out MTDD
== END 2019-04-19 09:57 | disposition home or self-care (01) | DRG 603 ==
LOC: EC 14:13 → 4SSUR 17:47 → OBSVTOIN 04-18 15:51
PROVIDERS: ADMIT Family Medicine; ATTEND Family Medicine
DX: L03.116 Cellulitis of left lower limb (principal); I82.502 Chronic embolism and thrombosis of unspecified deep veins of left lower extremity; N17.9 Acute kidney failure, unspecified; Z68.43 Body mass index [BMI] 50.0-59.9, adult; E66.01 Morbid (severe) obesity due to excess calories; G47.33 Obstructive sleep apnea (adult) (pediatric); I10 Essential (primary) hypertension; I89.0 Lymphedema, not elsewhere classified; M77.30 Calcaneal spur, unspecified foot; R59.9 Enlarged lymph nodes, unspecified; Z79.01 Long term (current) use of anticoagulants; Z79.899 Other long term (current) drug therapy; Z80.1 Family history of malignant neoplasm of trachea, bronchus and lung
CPT/HCPCS: 36415; 80048; 80053; 82565; 83605; 85025; 85027; 87040; 96365; 96367; 99284

== ENCOUNTER 2019-08-29 13:32 | Inpatient (IN) | payer MEDICAID ==
[2019-08-29] MEDS ORDERED: ACETAMINOPHEN TAB 500 MG TAB PO STA (14:20)
[2019-08-29] MEDS: SODIUM CHLORIDE 0.9% 500 ML 500 ML IV SCH ×2 (14:49→16:00)
--- NOTE | 2019-08-29 15:03 | ED ---
Skin/Abscess/FB HPI - General Chief complaint: Skin/Abscess/Foreign Body Stated complaint: Possible DVT Time Seen by Provider: 08/29/19 14:08 Source: patient Mode of arrival: wheelchair Limitations: no limitations - History of Present Illness Initial comments: 58-year-old male patient presents to the emergency department today for evaluation of redness, swelling, and pain to the right lower leg. Patient states that he started getting redness over the foot today. Patient states that the redness is now extended up to just below his knee and now onto his thigh. Patient states the area is hot to touch and painful. The patient was in to see the buckle inspector today, diagnosed with cellulitis and wanted him to come in for evaluation for possible DVT. Patient does take Eliquis and has a history of DVT to the left leg. Patient states he has been having fevers and chills with this. Denies any nausea or vomiting. Has had cellulitis in the past however to the left leg never the right. Patient denies any recent shortness breath, chest pain, abdominal pain, diarrhea, constipation, back pain, numbness, tingling, dizziness, weakness, hematuria, dysuria, urinary urgency, urinary frequency, headache, visual changes, or any other complaints. - Related Data Home Medications Medication Instructions Recorded Confirmed RX: Bisoprolol/Hydrochlorothiazide 1 tab PO DAILY 03/02/19 04/16/19 [Bisoprolol-Hctz 5-6.25 mg Tab] RX: Losartan Potassium 50 mg PO DAILY 03/02/19 04/16/19 RX: Apixaban [Eliquis] 5 mg PO BID 04/16/19 04/16/19 Multivitamins, Thera [Multivitamin 1 tab PO DAILY 08/29/19 08/29/19 (formulary)] Allergies Allergy/AdvReac Type Severity Reaction Status Date / Time No Known Allergies Allergy Verified 08/29/19 16:30 Review of Systems ROS Statement: Those systems with pertinent positive or pertinent negative responses have been documented in the HPI. ROS Other: All systems not noted in ROS Statement are negative. Past Medical History Past Medical History: Deep Vein Thrombosis (DVT), Hypertension Additional Past Medical History / Comment(s): lower ext cellulitis History of Any Multi-Drug Resistant Organisms: None Reported Past Surgical History: Tonsillectomy Past Anesthesia/Blood Transfusion Reactions: No Reported Reaction Past Psychological History: No Psychological Hx Reported Smoking Status: Never smoker Past Alcohol Use History: None Reported Past Drug Use History: None Reported - Past Family History Father Family Medical History: Cancer Additional Family Medical History / Comment(s): LUNG General Exam Limitations: no limitations General appearance: alert, in no apparent distress Eye exam: Present: normal appearance, PERRL, EOMI. Absent: scleral icterus, conjunctival injection, periorbital swelling ENT exam: Present: normal exam, normal oropharynx, mucous membranes moist Respiratory exam: Present: normal lung sounds bilaterally. Absent: respiratory distress, wheezes, rales, rhonchi, stridor Cardiovascular Exam: Present: regular rate, normal rhythm, normal heart sounds. Absent: systolic murmur, diastolic murmur, rubs, gallop, clicks GI/Abdominal exam: Present: soft, normal bowel sounds. Absent: distended, tenderness, guarding, rebound, rigid Extremities exam: Present: full ROM, normal capillary refill, other (There is erythema and warmth noted to the right anterior lower leg and foot, there is some streaking erythema noted up to the mid thigh. There is generalized edema. Leg is tender to touch. ). Absent: normal inspection, tenderness, pedal edema, joint swelling, calf tenderness Neurological exam: Present: alert, oriented X3, CN II-XII intact Psychiatric exam: Present: normal affect, normal mood Skin exam: Present: warm, dry, intact, normal color. Absent: rash Course Vital Signs 08/29/19 08/29/19 13:36 16:11 Temperature 100.0 F H 101.1 F H Pulse Rate 89 83 Respiratory 20 20 Rate Blood Pressure 118/74 101/56 O2 Sat by Pulse 99 94 L Oximetry Medical Decision Making - Medical Decision Making 58-year-old male patient presents to the emergency department today for evaluation of right lower extremity redness, swelling, pain. Physical examination did reveal erythema over the dorsal aspect of the right foot extending up onto the lower leg and streaking up into the right thigh. Patient is febrile. White blood cell count is 21,000. Lactic acid is normal. Vital signs are stable. Ultrasound was negative for DVT. Chest x-ray showed no acute cardio pulmonary process We did start vancomycin for cellulitis. He'll be admitted to the hospital for further evaluation and continued IV antibiotics. - Lab Data Result diagrams: 08/29/19 14:53 02/18/20 14:53 Lab Results 08/29/19 08/29/19 08/29/19 Range/Units 14:53 14:53 14:53 WBC 21.7 H (3.8-10.6) k/uL RBC 4.79 (4.30-5.90) m/uL Hgb 13.5 (13.0-17.5) gm/dL Hct 40.0 (39.0-53.0) % MCV 83.5 (80.0-100.0) fL MCH 28.2 (25.0-35.0) pg MCHC 33.8 (31.0-37.0) g/dL RDW 14.1 (11.5-15.5) % Plt Count 450 (150-450) k/uL Neutrophils % 93 % Lymphocytes % 3 % Monocytes % 3 % Eosinophils % 0 % Basophils % 0 % Neutrophils # 20.1 H (1.3-7.7) k/uL Lymphocytes # 0.7 L (1.0-4.8) k/uL Monocytes # 0.6 (0-1.0) k/uL Eosinophils # 0.0 (0-0.7) k/uL Basophils # 0.0 (0-0.2) k/uL PT (9.0-12.0) sec INR (<1.2) APTT (22.0-30.0) sec Sodium 134 L (137-145) mmol/L Potassium 4.1 (3.5-5.1) mmol/L Chloride 97 L (98-107) mmol/L Carbon Dioxide 28 (22-30) mmol/L Anion Gap 9 mmol/L BUN 19 (9-20) mg/dL Creatinine 1.22 (0.66-1.25) mg/dL Est GFR (CKD-EPI)AfAm 76 (>60 ml/min/1.73 sqM) Est GFR (CKD-EPI)NonAf 66 (>60 ml/min/1.73 sqM) Glucose 104 H (74-99) mg/dL Plasma Lactic Acid Jack 1.5 (0.7-2.0) mmol/L Calcium 9.1 (8.4-10.2) mg/dL Total Bilirubin 1.1 (0.2-1.3) mg/dL AST 36 (17-59) U/L ALT 35 (4-49) U/L Alkaline Phosphatase 78 (38-126) U/L Total Protein 7.2 (6.3-8.2) g/dL Albumin 3.8 (3.5-5.0) g/dL 08/29/19 Range/Units 14:53 WBC (3.8-10.6) k/uL RBC (4.30-5.90) m/uL Hgb (13.0-17.5) gm/dL Hct (39.0-53.0) % MCV (80.0-100.0) fL MCH (25.0-35.0) pg MCHC (31.0-37.0) g/dL RDW (11.5-15.5) % Plt Count (150-450) k/uL Neutrophils % % Lymphocytes % % Monocytes % % Eosinophils % % Basophils % % Neutrophils # (1.3-7.7) k/uL Lymphocytes # (1.0-4.8) k/uL Monocytes # (0-1.0) k/uL Eosinophils # (0-0.7) k/uL Basophils # (0-0.2) k/uL PT 12.4 H (9.0-12.0) sec INR 1.2 H (<1.2) APTT 28.0 (22.0-30.0) sec Sodium (137-145) mmol/L Potassium (3.5-5.1) mmol/L Chloride (98-107) mmol/L Carbon Dioxide (22-30) mmol/L Anion Gap mmol/L BUN (9-20) mg/dL Creatinine (0.66-1.25) mg/dL Est GFR (CKD-EPI)AfAm (>60 ml/min/1.73 sqM) Est GFR (CKD-EPI)NonAf (>60 ml/min/1.73 sqM) Glucose (74-99) mg/dL Plasma Lactic Acid Jack (0.7-2.0) mmol/L Calcium (8.4-10.2) mg/dL Total Bilirubin (0.2-1.3) mg/dL AST (17-59) U/L ALT (4-49) U/L Alkaline Phosphatase (38-126) U/L Total Protein (6.3-8.2) g/dL Albumin (3.5-5.0) g/dL - EKG Data -: EKG Interpreted by Me EKG Comments: EKG obtained at 1435 shows normal sinus rhythm with a ventricular rate of 90, IA interval 144, QRS duration 106, QT 348, QTC 425. No evidence of ST elevation or depression. - Radiology Data Radiology results: report reviewed Two-view x-ray of the chest is obtained. Report reviewed in its entirety. Impression by Dr. Mo shows no acute process. Ultrasound of the right lower extremity was obtained. Report reviewed in its entirety. Impression by Dr. Mo shows negative for DVT. Within the right groin there is a probable lymph node visualize measuring 3.6 x 2.0 x 2.2 cm Disposition Clinical Impression: Cellulitis of right lower extremity Disposition: ADMITTED IP TO THIS [facility] Condition: Serious Referrals: Maria Elena Burkett MD [Primary Care Provider] - 1-2 days Decision to Admit Reason: Admit from EC Decision Date: 08/29/19 Decision Time: 16:31
[2019-08-29 15:08] LABS: Basophils % (A) 0 %; Eosinophils % (A) 0 %; HGB 13.5 gm/dL (13.0-17.5); Lymphocytes # (A) 0.7 k/uL (1.0-4.8); Lymphocytes % (A) 3 %; MCH 28.2 pg (25.0-35.0); MCHC 33.8 g/dL (31.0-37.0); MCV 83.5 fL (80.0-100.0); Mean Platelet Volume 6.8; Monocytes # (A) 0.6 k/uL (0-1.0); Monocytes % (A) 3 %; Neutrophils # (A) 20.1 k/uL (1.3-7.7); Neutrophils % (A) 93 %; Platelet Count 450 k/uL (150-450); RBC 4.79 m/uL (4.30-5.90); RDW 14.1 % (11.5-15.5); WBC 21.7 k/uL (3.8-10.6)
[2019-08-29 15:16] LABS: Albumin 3.8 g/dL (3.5-5.0); Calcium 9.1 mg/dL (8.4-10.2); Potassium 4.1 mmol/L (3.5-5.1); Total Bilirubin 1.1 mg/dL (0.2-1.3); Total Protein 7.2 g/dL (6.3-8.2)
[2019-08-29 15:19] LABS: INR 1.2 (<1.2); Prothrombin Time 12.4 sec (9.0-12.0)
[2019-08-29] MEDS ORDERED: VANCOMYCIN IV PER PHARMACY 1 EACH MISC MISCELLANE PRN (15:26)
--- NOTE | 2019-08-29 15:33 | US ---
EXAMINATION TYPE: US venous doppler duplex LE RT DATE OF EXAM: 08/29/2019 3:20 PM COMPARISON: NONE CLINICAL HISTORY: Right leg swelling/pain. History of cellulitis per patient. Redness in right calf. Difficult and limited exam due to patient body habitus. Patient is currently taking blood thinners SIDE PERFORMED: Right TECHNIQUE: The lower extremity deep venous system is examined utilizing real time linear array sonog morgan with graded compression, doppler sonography and color-flow sonography. VESSELS IMAGED: External Iliac Vein (EIV) Common Femoral Vein Deep Femoral Vein Greater Saphenous Vein * Femoral Vein Popliteal Vein Small Saphenous Vein * Proximal Calf Veins (* superficial vessels) Right Leg: Negative for DVT Within the right groin, there is a probable lymph node visualized measuring 3.6 x 2.0 x 2.2 cm IMPRESSION: Grayscale, color doppler, spectral doppler imaging performed of the deep veins of the lo wer extremities. There is normal flow, compressibility, vascular waveforms.
--- NOTE | 2019-08-29 15:55 | XR ---
EXAMINATION TYPE: XR chest 2V DATE OF EXAM: 08/29/2019 COMPARISON: NONE TECHNIQUE: PA and lateral views submitted. HISTORY: Fever FINDINGS: The lungs are clear and there is no pneumothorax, pleural effusion, or focal pneumonia. Arthropathy of the shoulders. No overt failure. Bilateral pleural thickening. Hypertrophic and degenerative whitlock ge of the spine. IMPRESSION: 1. No acute process.
[2019-08-29] MEDS ORDERED: VANCOMYCIN 2,500 MG in SODIUM CHLORIDE 0.9% 500 ML 500 ML IVPB ONE (16:00)
[2019-08-29] MEDS ORDERED: NALOXONE 0.4 MG/ML 1 ML VIAL IV PRN (16:15)
--- NOTE | 2019-08-29 17:11 | P.HPIM ---
History of Present Illness H&P Date: 08/29/19 Chief Complaint: Right leg swelling and erythema 58-year-old male with hypertension well-controlled on medications, recent diagnosis of left leg DVT May 2019 on Eliquis Patient comes in with acute onset right leg swelling and erythema that was extending proximally he went and saw his business systems administrator today and due to his recent history of DVT suggested that he goes to the hospital get evaluated for DVT. She also reports fevers chills and feeling run down. He denies any traumas or injuries to his right leg he denies any recent hospitalization other than back in May for DVT. He denies any recent travel. Patient denies any chest pain or trouble breathing. He reports that he's been compliant with his medications. 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 Patient otherwise denies any GI bleeding abdominal pain nausea or vomiting Venous duplex ultrasound in the ED was negative for acute DVT in the right lower extremity Chest x-ray showed no acute process Patient admitted for IV antibiotics and close monitoring due to sepsis secondary to cellulitis Review of Systems Pertinent positives as noted in HPI. All other systems were reviewed and are negative Past Medical History Past Medical History: Deep Vein Thrombosis (DVT), Hypertension Additional Past Medical History / Comment(s): lower ext cellulitis History of Any Multi-Drug Resistant Organisms: None Reported Past Surgical History: Tonsillectomy Past Anesthesia/Blood Transfusion Reactions: No Reported Reaction Past Psychological History: No Psychological Hx Reported Smoking Status: Never smoker Past Alcohol Use History: None Reported Past Drug Use History: None Reported - Past Family History Father Family Medical History: Cancer Additional Family Medical History / Comment(s): LUNG Medications and Allergies Home Medications Medication Instructions Recorded Confirmed Type Bisoprolol/Hydrochlorothiazide 1 tab PO DAILY 03/02/19 08/29/19 History [Bisoprolol-Hctz 5-6.25 mg Tab] Losartan Potassium 50 mg PO DAILY 03/02/19 08/29/19 History Apixaban [Eliquis] 5 mg PO BID 04/16/19 08/29/19 History Multivitamins, Thera [Multivitamin 1 tab PO DAILY 08/29/19 08/29/19 History (formulary)] Allergies Allergy/AdvReac Type Severity Reaction Status Date / Time No Known Allergies Allergy Verified 08/29/19 16:30 Physical Exam Vitals: Vital Signs Temp Pulse Resp BP Pulse Ox 08/29/19 16:11 101.1 F H 83 20 101/56 94 L 08/29/19 13:36 100.0 F H 89 20 118/74 99 Intake and Output 08/29/19 08/29/19 08/29/19 06:59 14:59 22:59 Other: Weight 160.118 kg Constitutional: No acute distress, conversant, pleasant Eyes: Anicteric sclerae, moist conjunctiva, no lid-lag Pupils equal round reactive to light ENMT: NC/AT Oropharynx clear, no erythema, exudates Neck: Supple, FROM, no masses, or JVD No carotid bruits No thyromegaly Lungs: Clear to auscultation Clear to percussion Normal respiratory effort, no accessory muscle use Cardiovascular: Heart regular in rate and rhythm, No murmurs, gallops, or rubs No peripheral edema Abdominal: Soft Nontender, no guarding, rebound or rigidity Abdomen moving with respiration Normoactive bowel sounds No hepatomegaly, No splenomegaly No palpable mass No abdominal wall hernia noted Skin: There is erythema and slight induration involving most of his right foot extending up his legs to the lower third of his right thigh. Mild discomfort to palpation no warmth to the touch no drainage. There is dry skin with sloughing and cracking over the sole of his right foot Otherwise Normal temperature, tone, texture, turgor No induration No subcutaneous nodules No rash, lesions No ulcers Extremities: Erythema as described above over the right leg No digital cyanosis No clubbing Pedal pulses intact and symmetrical Radial pulses intact and symmetrical No calf tenderness Psychiatric: Alert and oriented to person, place and time Appropriate affect fair judgement Neuro Muscles Strength 5/5 in all 4 extremities Sensation to light touch grossly present throughout Cranial nerves II-XII grossly intact No focal sensory deficits Lymphatics: no palpable cervical or supraclavicular , or inguinal lymph nodes Results CBC & Chem 7: 08/29/19 14:53 08/29/19 14:53 Labs: Abnormal Lab Results - Last 24 Hours (Table) 08/29/19 08/29/19 08/29/19 Range/Units 14:53 14:53 14:53 WBC 21.7 H (3.8-10.6) k/uL Neutrophils # 20.1 H (1.3-7.7) k/uL Lymphocytes # 0.7 L (1.0-4.8) k/uL PT 12.4 H (9.0-12.0) sec INR 1.2 H (<1.2) Sodium 134 L (137-145) mmol/L Chloride 97 L (98-107) mmol/L Glucose 104 H (74-99) mg/dL Assessment and Plan Assessment: 58-year-old male with hypertension controlled with medications, recent diagnosis of acute left lower extremity DVT May 2019 on Eliquis Comes in due to sudden onset erythema and swelling over the right lower extremity, venous duplex ultrasound was negative for acute DVT over the right lower extremity. Patient admitted for sepsis secondary to cellulitis of the right lower extremity with anticipated length of stay more than two midnight Plan: Sepsis secondary to cellulitis right lower extremity Venous duplex ultrasound negative for acute DVT over the right leg Vancomycin dosing by pharmacy Patient is febrile with leukocytosis Close monitoring of vital signs Symptomatic control Erythema and area marked for comparison and follow-up Recent DVT of the left lower extremity patient on Eliquis Denies any GI bleeding Hypertension controlled with medications Continue home meds Preformed a thorough record review from recent hospitalization May 2019 for DVT and cellulitis of the left lower extremity Surrogate decision-maker: Patient CODE STATUS: Full code DVT prophylaxis: Eliquis for DVT Discussed with: Patient, ER, RN Anticipated length of stay more than [address]: Home A total of 60 minutes was spent on the care of this complex patient more than 50% of the time was spent in counseling and care coordination.
[2019-08-29] MEDS: ACETAMINOPHEN TAB 325 MG TAB PO PRN (22:05)
[2019-08-29] MEDS: APIXABAN 5 MG TAB PO SCH (22:05)
[2019-08-29] MEDS ORDERED: HYDROcodone/APAP 5-325MG 1 EACH TAB PO PRN (22:31)
[2019-08-30] MEDS: SODIUM CHLORIDE 0.9% 1,000 ML IV SCH ×2 (02:04→13:02)
[2019-08-30] MEDS: VANCOMYCIN 2,500 MG in SODIUM CHLORIDE 0.9% 500 ML 500 ML IVPB SCH ×2 (08:03→23:22)
[2019-08-30] MEDS: BISOPROLOL-HCTZ 5-6.25 MG 1 EACH TAB PO SCH (08:03)
[2019-08-30] MEDS: LOSARTAN 50 MG TAB PO SCH (08:03)
[2019-08-30] MEDS: APIXABAN 5 MG TAB PO SCH ×2 (08:04→22:32)
[2019-08-30] MEDS: ACETAMINOPHEN TAB 325 MG TAB PO PRN ×2 (08:04→17:26)
[2019-08-30] MEDS ORDERED: KETOROLAC 30 MG/ML 1 ML VIAL IVP PRN (10:04)
--- NOTE | 2019-08-30 10:04 | P.PN ---
Subjective Progress Note Date: 08/30/19 Principal diagnosis: follow up for cellulitis Patient seen and examined had low-grade fevers overnight. Patient used his CPAP have a good night sleep Denies any chest pain trouble breathing nausea or vomiting Still reports pain and swelling and redness in his right lower extremity. Controlled with Tylenol Objective - Vital Signs Vital signs: Vital Signs Temp 99.7 F H 08/30/19 07:00 Pulse 87 08/30/19 07:00 Resp 16 08/30/19 07:00 BP 114/72 08/30/19 07:00 Pulse Ox 96 08/30/19 07:00 Intake & Output 08/29/19 08/30/19 08/30/19 18:59 06:59 18:59 Intake Total 200 Output Total 400 Balance -200 Weight 160.118 kg 162.8 kg Intake: Oral 200 Output: Urine 400 - Exam Constitutional: vital signs stable, Not in acute distress, pleasant, conversant , obese Lungs: Clear to auscultation bilaterally, clear to percussion, normal respiratory effort Cardiovascular: Regular rate and rhythm, no murmurs, no gallops, no rubs, no peripheral edema Gastrointestinal: Soft, no tenderness to palpation , bowel sounds positive Extremities: Erythema, induration over the right leg extending to the lower thigh, tender to palpation no oozing wounds or cuts, No digital cyanosis or clubbing, peripheral pulses palpable and equal Psych: Alert, oriented to place, person and time, appropriate affect, intact judgment - Labs CBC & Chem 7: 08/29/19 14:53 08/29/19 14:53 Labs: Abnormal Lab Results - Last 24 Hours (Table) 08/29/19 08/29/19 08/29/19 Range/Units 14:53 14:53 14:53 WBC 21.7 H (3.8-10.6) k/uL Neutrophils # 20.1 H (1.3-7.7) k/uL Lymphocytes # 0.7 L (1.0-4.8) k/uL PT 12.4 H (9.0-12.0) sec INR 1.2 H (<1.2) Sodium 134 L (137-145) mmol/L Chloride 97 L (98-107) mmol/L Glucose 104 H (74-99) mg/dL Assessment and Plan Assessment: 58-year-old male with hypertension controlled with medications, recent diagnosis of acute left lower extremity DVT May 2019 on Eliquis Comes in due to sudden onset erythema and swelling over the right lower extremity, venous duplex ultrasound was negative for acute DVT over the right lower extremity. Patient admitted for sepsis secondary to cellulitis of the right lower extremity 08/29 Low-grade fevers overnight, tolerating vancomycin add antifungal creams for his athletes foot Plan: Sepsis secondary to cellulitis right lower extremity Venous duplex ultrasound negative for acute DVT over the right leg Vancomycin dosing by pharmacy Low-grade fever overnight Close monitoring of vital signs Symptomatic control of pain Erythema and area marked for comparison and follow-up Athlete's foot Recent DVT of the left lower extremity patient on Eliquis Denies any GI bleeding Hypertension controlled with medications Continue home meds Follow-up labs follow-up cultures
[2019-08-30 10:47] LABS: African American GFR (CKD) >90 (>60 ml/min/1.73 sqM); Anion Gap 8 mmol/L; Blood Urea Nitrogen 15 mg/dL (9-20); Calcium 8.6 mg/dL (8.4-10.2); Carbon Dioxide 24 mmol/L (22-30); Chloride 102 mmol/L (98-107); Glucose 133 mg/dL (74-99); Non-African American GFR(CKD) 81 (>60 ml/min/1.73 sqM); Potassium 3.7 mmol/L (3.5-5.1); Sodium 134 mmol/L (137-145)
[2019-08-30 10:52] LABS: Basophils % (A) 0 %; Eosinophils # (A) 0.1 k/uL (0-0.7); Eosinophils % (A) 0 %; HCT 36.5 % (39.0-53.0); HGB 12.1 gm/dL (13.0-17.5); Lymphocytes # (A) 1.2 k/uL (1.0-4.8); Lymphocytes % (A) 7 %; MCH 27.9 pg (25.0-35.0); MCHC 33.1 g/dL (31.0-37.0); MCV 84.2 fL (80.0-100.0); Monocytes # (A) 0.6 k/uL (0-1.0); Monocytes % (A) 4 %; Neutrophils # (A) 13.8 k/uL (1.3-7.7); Neutrophils % (A) 87 %; Platelet Count 403 k/uL (150-450); RBC 4.33 m/uL (4.30-5.90); RDW 14.3 % (11.5-15.5); WBC 15.9 k/uL (3.8-10.6)
[2019-08-30] MEDS: CLOTRIMAZOLE 1% CREAM 15 GM TUBE TOPICAL SCH ×2 (13:01→22:33)
[2019-08-30] MEDS: TRIAMCINOLONE 0.1% CREAM 80 GM TUBE TOPICAL SCH ×2 (13:01→22:33)
[2019-08-31] MEDS: LOSARTAN 50 MG TAB PO SCH (08:45)
[2019-08-31] MEDS: BISOPROLOL-HCTZ 5-6.25 MG 1 EACH TAB PO SCH (08:45)
[2019-08-31 08:46] LABS: African American GFR (CKD) >90 (>60 ml/min/1.73 sqM); Anion Gap 8 mmol/L; Blood Urea Nitrogen 12 mg/dL (9-20); Calcium 8.3 mg/dL (8.4-10.2); Carbon Dioxide 26 mmol/L (22-30); Chloride 103 mmol/L (98-107); Glucose 100 mg/dL (74-99); Non-African American GFR(CKD) >90 (>60 ml/min/1.73 sqM); Sodium 137 mmol/L (137-145)
[2019-08-31] MEDS: ACETAMINOPHEN TAB 325 MG TAB PO PRN ×2 (08:46→19:21)
[2019-08-31] MEDS: APIXABAN 5 MG TAB PO SCH ×2 (08:46→20:57)
[2019-08-31] MEDS: CLOTRIMAZOLE 1% CREAM 15 GM TUBE TOPICAL SCH ×2 (08:48→20:58)
[2019-08-31] MEDS: TRIAMCINOLONE 0.1% CREAM 80 GM TUBE TOPICAL SCH ×2 (08:48→20:59)
[2019-08-31] MEDS: SODIUM CHLORIDE 0.9% 1,000 ML IV SCH (09:46)
[2019-08-31 11:14] LABS: HCT 35.6 % (39.0-53.0); HGB 11.8 gm/dL (13.0-17.5); MCH 28.5 pg (25.0-35.0); MCHC 33.2 g/dL (31.0-37.0); MCV 85.6 fL (80.0-100.0); Mean Platelet Volume 7.9; Platelet Count 377 k/uL (150-450); RBC 4.16 m/uL (4.30-5.90); RDW 14.5 % (11.5-15.5); WBC 11.8 k/uL (3.8-10.6)
--- NOTE | 2019-08-31 14:03 | P.PN ---
Subjective Progress Note Date: 08/31/19 Principal diagnosis: follow up for cellulitis Patient seen and examined no new complaints erythema improving slightly no fevers overnight Objective - Vital Signs Vital signs: Vital Signs Temp 97.7 F 08/31/19 12:10 Pulse 74 08/31/19 12:10 Resp 24 08/31/19 12:10 BP 111/73 08/31/19 12:10 Pulse Ox 95 08/31/19 12:10 Intake & Output 08/30/19 08/31/19 08/31/19 18:59 06:59 18:59 Intake Total 300 320 Output Total 400 Balance -100 320 Intake: Oral 300 320 Output: Urine 400 Other: Voiding Method Urinal Urinal # Voids 3 2 - Exam Constitutional: vital signs stable, Not in acute distress, pleasant, co nversant , obese Lungs: Clear to auscultation bilaterally, clear to percussion, normal respiratory effort Cardiovascular: Regular rate and rhythm, no murmurs, no gallops, no rubs, no peripheral edema Gastrointestinal: Soft, no tenderness to palpation , bowel sounds positive Extremities: Erythema and induration clearing from his lower thigh but still significant over his leg, overall slowly improving tender to palpation , No digital cyanosis or clubbing, peripheral pulses palpable and equal Psych: Alert, oriented to place, person and time, appropriate affect, intact judgment - Labs CBC & Chem 7: 08/31/19 07:45 08/31/19 07:45 Labs: Abnormal Lab Results - Last 24 Hours (Table) 08/31/19 08/31/19 Range/Units 07:45 07:45 WBC 11.8 H (3.8-10.6) k/uL RBC 4.16 L (4.30-5.90) m/uL Hgb 11.8 L (13.0-17.5) gm/dL Hct 35.6 L (39.0-53.0) % Glucose 100 H (74-99) mg/dL Calcium 8.3 L (8.4-10.2) mg/dL Microbiology - Last 24 Hours (Table) 08/29/19 14:53 Blood Culture - Preliminary Blood No Growth after 24 hours Assessment and Plan Assessment: 58-year-old male with hypertension controlled with medications, recent diagnosis of acute left lower extremity DVT May 2019 on Eliquis Comes in due to sudden onset erythema and swelling over the right lower extremity, venous duplex ultrasound was negative for acute DVT over the right lower extremity. Patient admitted for sepsis secondary to cellulitis of the right lower extremity 08/29 Low-grade fevers overnight, tolerating vancomycin add antifungal creams for his athletes foot 08/31 no more fever, white count trending down erythema cleared his lower thigh, but still significant over his leg plans for discharge in AM apply compression stocking today Plan: Sepsis secondary to cellulitis right lower extremity, improving Venous duplex ultrasound negative for acute DVT over the right leg Vancomycin dosing by pharmacy afebrile Close monitoring of vital signs Symptomatic control of pain erythema improving apply compression stocking Athlete's foot apply antifungals Recent DVT of the left lower extremity patient on Eliquis Denies any GI bleeding Hypertension controlled with medications Continue home meds blood culture negative to date plans for discharge in AM on bactrim DS BID for 1 week
[2019-08-31] MEDS: VANCOMYCIN 2,500 MG in SODIUM CHLORIDE 0.9% 500 ML 500 ML IVPB SCH (16:27)
[2019-09-01] MEDS: SODIUM CHLORIDE 0.9% 1,000 ML IV SCH (04:32)
[2019-09-01 04:53] VITALS: BP 144/69; PULSE 78; RESP 22; TEMP 97.4
[2019-09-01] MEDS ORDERED: VANCOMYCIN TROUGH DUE 1 EACH MISC MISCELLANE ONE (07:00)
[2019-09-01] MEDS: TRIAMCINOLONE 0.1% CREAM 80 GM TUBE TOPICAL SCH (07:52)
[2019-09-01] MEDS: CLOTRIMAZOLE 1% CREAM 15 GM TUBE TOPICAL SCH (07:52)
[2019-09-01] MEDS: APIXABAN 5 MG TAB PO SCH (07:53)
[2019-09-01] MEDS: LOSARTAN 50 MG TAB PO SCH (07:53)
[2019-09-01] MEDS: BISOPROLOL-HCTZ 5-6.25 MG 1 EACH TAB PO SCH (07:53)
[2019-09-01] MEDS: VANCOMYCIN 2,500 MG in SODIUM CHLORIDE 0.9% 500 ML 500 ML IVPB SCH (08:51)
--- NOTE | 2019-09-01 09:08 | P.DS ---
Providers Date of admission: 08/29/19 16:00 Attending physician: Ck Rg MD Primary care physician: Maria Elena Burkett Hospital Course: final diagnosis at discharge Sepsis secondary to cellulitis of the right leg chronic conditions stasis dermatitis bilateral lower ext recent DVT left lower extremity , on Eliquis hypertension , controlled obesity hospital course 58-year-old male with hypertension controlled with medications, recent diagnosis of acute left lower extremity DVT May 2019 on Eliquis Comes in due to sudden onset erythema and swelling over the right lower extremity, venous duplex ultrasound was negative for acute DVT over the right lower extremity. Patient admitted for sepsis secondary to cellulitis of the right lower extremity 08/29 Low-grade fevers overnight, tolerating vancomycin add antifungal creams for his athletes foot 08/31 no more fever, white count trending down erythema cleared his lower thigh, but still significant over his leg plans for discharge in AM apply compression stocking today 09/01 Patient seen and examined before discharge Patient afebrile, denies any chest pain or trouble breathing. Erythema and induration over the right leg is improving Encouraged him to wear compression stocking Patient status post 3 days of vancomycin for his cellulitis Constitutional: vital signs stable, Not in acute distress, pleasant, conversant , obese Lungs: Clear to auscultation bilaterally, clear to percussion, normal respiratory effort Cardiovascular: Regular rate and rhythm, no murmurs, no gallops, no rubs, no peripheral edema Gastrointestinal: Soft, no tenderness to palpation , bowel sounds positive Extremities: Erythema and induration clearing from his lower thigh but still significant over his leg, overall slowly improving tender to palpation , No digital cyanosis or clubbing, peripheral pulses palpable and equal Psych: Alert, oriented to place, person and time, appropriate affect, intact judgment Discharge home in stable condition Follow up with primary care doctor Prescription for Bactrim double strength twice a day for 7 days Patient and agreeable with discharge planning questions answered. 40 minutes were spent discharging this patient, and more than 50% of the time was spent in counseling the patient and family and in coordinating care. Patient Condition at Discharge: Serious Plan - Discharge Summary Discharge Rx Participant: No New Discharge Prescriptions: New Sulfamethox-Tmp 800-160Mg [Bactrim DS 800-160 mg] 1 tab PO Q12HR #14 tab Continue Losartan Potassium 50 mg PO DAILY Bisoprolol/Hydrochlorothiazide [Bisoprolol-Hctz 5-6.25 mg Tab] 1 tab PO DAILY Apixaban [Eliquis] 5 mg PO BID Multivitamins, Thera [Multivitamin (formulary)] 1 tab PO DAILY Triamcinolone 0.1% Cream [Kenalog 0.1% Cream] 1 TOPICAL DAILY Econazole Nitrate [Econazole Nitrate 1%] 1 TOPICAL DAILY Discharge Medication List Bisoprolol/Hydrochlorothiazide [Bisoprolol-Hctz 5-6.25 mg Tab] 1 tab PO DAILY 03/02/19 [History] Losartan Potassium 50 mg PO DAILY 03/02/19 [History] Apixaban [Eliquis] 5 mg PO BID 04/16/19 [History] Econazole Nitrate [Econazole Nitrate 1%] 1 TOPICAL DAILY 08/29/19 [History] Multivitamins, Thera [Multivitamin (formulary)] 1 tab PO DAILY 08/29/19 [History] Triamcinolone 0.1% Cream [Kenalog 0.1% Cream] 1 TOPICAL DAILY 08/29/19 [History] Sulfamethox-Tmp 800-160Mg [Bactrim DS 800-160 mg] 1 tab PO Q12HR #14 tab 09/01/19 [Rx] Follow up Appointment(s)/Referral(s): Maria Elena Burkett MD [Primary Care Provider] - 1-2 days Patient Instructions/Handouts: Cellulitis (DC), Stasis Dermatitis (DC), Venous Insufficiency (DC), Leg Edema (ED) Discharge Disposition: HOME SELF-CARE
[2019-09-01 09:36] LABS: African American GFR (CKD) >90 (>60 ml/min/1.73 sqM); Anion Gap 7 mmol/L; Blood Urea Nitrogen 11 mg/dL (9-20); Calcium 8.5 mg/dL (8.4-10.2); Carbon Dioxide 26 mmol/L (22-30); Chloride 104 mmol/L (98-107); Glucose 107 mg/dL (74-99); Non-African American GFR(CKD) >90 (>60 ml/min/1.73 sqM); Sodium 137 mmol/L (137-145)
[2019-09-01] MEDS ORDERED: VANCOMYCIN 2,500 MG in SODIUM CHLORIDE 0.9% 500 ML 500 ML IVPB SCH (18:00)
== END 2019-09-01 10:33 | disposition home or self-care (01) | DRG 872 ==
LOC: EC 13:32 → 6NMEDSUR 16:00
PROVIDERS: ADMIT Internal Medicine; ATTEND Internal Medicine
DX: A41.9 Sepsis, unspecified organism (principal); L03.115 Cellulitis of right lower limb; E66.9 Obesity, unspecified; B35.3 Tinea pedis; I10 Essential (primary) hypertension; I87.2 Venous insufficiency (chronic) (peripheral); Z79.01 Long term (current) use of anticoagulants; Z86.718 Personal history of other venous thrombosis and embolism; Z79.899 Other long term (current) drug therapy
CPT/HCPCS: 36415; 71046; 80048; 80053; 80202; 83605; 85025; 85027; 85610; 85730; 87040; 93005; 96365; 96366; 99285

== ENCOUNTER → 2020-01-08 | Outpatient (CLI) | payer OTHER ==
--- NOTE | 2020-01-09 07:03 | US ---
EXAMINATION TYPE: US prostate transrectal DATE OF EXAM: 01/08/2020 COMPARISON: NONE CLINICAL HISTORY: R97.20 elevated prostate specific antigen PSA. Abn labs per patient This examination was performed using the transrectal probe. EXAM MEASUREMENTS: Gland Size: 5.3 x 4.5 x 3.8 cm Volume: 46.5 ml Predicted PSA: 5.58 Actual PSA (if available):Per office, 11-15-2019 = 0.293 Multiple images taken of prostate gland. Peripheral zone appears heterogenous with no prominent mass es or lesions seen. Calcifications seen in central zone. IMPRESSION: Heterogenous peripheral zone. Consider tissue diagnosis if felt clinically indicated. Predicted PSA = volume x 0.12 ng/ml Calculated Volume = 0.5236 x L x W x H
== END | disposition home or self-care (01) ==
LOC: RADUSWWP 08:45
PROVIDERS: ATTEND Family Medicine
DX: R97.20 Elevated prostate specific antigen [PSA] (principal)
CPT/HCPCS: 76872

== ENCOUNTER 2021-10-10 09:32 | Observation (INO) | payer MEDICAID, OTHER ==
[2021-10-10] MEDS ORDERED: HYDROmorphone 0.5 MG/0.5 ML SYRINGE IVP STA (10:16)
[2021-10-10] MEDS ORDERED: ONDANSETRON 4 MG/2 ML VIAL IVP STA (10:16)
[2021-10-10 10:39] LABS: Basophils # (A) 0.1 k/uL (0-0.2); Basophils % (A) 1 %; Eosinophils # (A) 0.3 k/uL (0-0.7); Eosinophils % (A) 3 %; Lymphocytes # (A) 1.2 k/uL (1.0-4.8); Lymphocytes % (A) 10 %; MCH 28.5 pg (25.0-35.0); MCHC 32.5 g/dL (31.0-37.0); MCV 87.7 fL (80.0-100.0); Mean Platelet Volume 7.2; Monocytes # (A) 1.2 k/uL (0-1.0); Monocytes % (A) 10 %; Neutrophils # (A) 9.5 k/uL (1.3-7.7); Neutrophils % (A) 75 %; Platelet Count 248 k/uL (150-450); RBC 5.25 m/uL (4.30-5.90); RDW 13.3 % (11.5-15.5); WBC 12.6 k/uL (3.8-10.6)
[2021-10-10 10:50] LABS: Albumin 3.7 g/dL (3.5-5.0); Calcium 8.6 mg/dL (8.4-10.2); Potassium 4.1 mmol/L (3.5-5.1); Total Bilirubin 1.4 mg/dL (0.2-1.3); Total Protein 6.5 g/dL (6.3-8.2)
--- NOTE | 2021-10-10 10:57 | ED ---
General Adult HPI - General Chief complaint: Abdominal Pain Stated complaint: Abdominal Pain Time Seen by Provider: 10/10/21 09:33 Source: patient, family, RN notes reviewed Mode of arrival: ambulatory Limitations: no limitations - History of Present Illness Initial comments: 60-year-old male presents to the emergency room for chief complaint of abdominal pain. Patient states that 4 days ago he started to develop upper abdominal pain. This happened after eating dinner out at a restaurant. The pain continued and 2 days ago seemed to go into his lower abdomen as well. States his upper abdomen is the most painful area on the right side. Patient states that taking a deep breath hurts his upper abdomen. He denies shortness of breath or chest pain. He does not have any abdominal surgery history. He has had low-grade fevers up to 99.4 but no true fevers.he has also had some associated nausea.Patient has no other complaints at this time including shortness of breath, chest pain, headache, or visual changes. - Related Data Home Medications Medication Instructions Recorded Confirmed Bisoprolol/Hydrochlorothiazide 1 tab PO DAILY 03/02/19 10/10/21 [Bisoprolol-Hctz 5-6.25 mg Tab] Losartan Potassium 50 mg PO DAILY 03/02/19 10/10/21 Multivitamins, Thera [Multivitamin 1 tab PO DAILY 08/29/19 10/10/21 (formulary)] Ascorbic Acid [Vitamin C] 500 mg PO DAILY 10/10/21 10/10/21 Cholecalciferol [Vitamin D3 (25 25 mcg PO DAILY 10/10/21 10/10/21 Mcg = 1000 Iu)] Loratadine [Claritin] 10 mg PO DAILY 10/10/21 10/10/21 Allergies Allergy/AdvReac Type Severity Reaction Status Date / Time No Known Allergies Allergy Verified 10/10/21 11:23 Review of Systems ROS Statement: Those systems with pertinent positive or pertinent negative responses have been documented in the HPI. ROS Other: All systems not noted in ROS Statement are negative. Past Medical History Past Medical History: Deep Vein Thrombosis (DVT), Hypertension Additional Past Medical History / Comment(s): lower ext cellulitis History of Any Multi-Drug Resistant Organisms: None Reported Past Surgical History: Tonsillectomy Past Anesthesia/Blood Transfusion Reactions: No Reported Reaction Past Psychological History: No Psychological Hx Reported Smoking Status: Never smoker Past Alcohol Use History: None Reported Past Drug Use History: None Reported - Past Family History Father Family Medical History: Cancer Additional Family Medical History / Comment(s): LUNG General Exam Limitations: no limitations General appearance: alert, in no apparent distress Head exam: Present: atraumatic Eye exam: Present: normal appearance, PERRL, EOMI. Absent: scleral icterus, conjunctival injection ENT exam: Present: normal exam, mucous membranes moist Neck exam: Present: normal inspection, full ROM. Absent: tenderness Respiratory exam: Present: normal lung sounds bilaterally. Absent: respiratory distress, wheezes Cardiovascular Exam: Present: regular rate, normal rhythm, normal heart sounds GI/Abdominal exam: Present: soft, tenderness (RUQ tenderness, minimal RLQ tenderness), normal bowel sounds. Absent: distended, guarding, rebound Course Vital Signs 10/10/21 09:32 Temperature 98.7 F Pulse Rate 85 Respiratory 18 Rate Blood Pressure 143/81 O2 Sat by Pulse 95 Oximetry Medical Decision Making - Medical Decision Making Vitals are stable. Patient does have right upper quadrant and right lower quadrant tenderness. No left-sided abdominal tenderness. CBC does show leukocytosis with a left shift. CMP reveals a mildly elevated bilirubin. CT abdomen and pelvis reveals a 4.4 cm stone in the gallbladder neck as well as signs of severe acute cholecystitis. Consulted Dr. Allen who will possibly add him on today, recommends NPO, abx, IV fluids. - Lab Data Result diagrams: 10/10/21 10:24 10/10/21 10:24 Lab Results 10/10/21 10/10/21 10/10/21 Range/Units 10:24 10:24 10:24 WBC 12.6 H (3.8-10.6) k/uL RBC 5.25 (4.30-5.90) m/uL Hgb 15.0 (13.0-17.5) gm/dL Hct 46.0 (39.0-53.0) % MCV 87.7 (80.0-100.0) fL MCH 28.5 (25.0-35.0) pg MCHC 32.5 (31.0-37.0) g/dL RDW 13.3 (11.5-15.5) % Plt Count 248 (150-450) k/uL MPV 7.2 Neutrophils % 75 % Lymphocytes % 10 % Monocytes % 10 % Eosinophils % 3 % Basophils % 1 % Neutrophils # 9.5 H (1.3-7.7) k/uL Lymphocytes # 1.2 (1.0-4.8) k/uL Monocytes # 1.2 H (0-1.0) k/uL Eosinophils # 0.3 (0-0.7) k/uL Basophils # 0.1 (0-0.2) k/uL Sodium 136 L (137-145) mmol/L Potassium 4.1 (3.5-5.1) mmol/L Chloride 103 (98-107) mmol/L Carbon Dioxide 25 (22-30) mmol/L Anion Gap 8 mmol/L BUN 13 (9-20) mg/dL Creatinine 1.16 (0.66-1.25) mg/dL Est GFR (CKD-EPI)AfAm 80 (>60 ml/min/1.73 sqM) Est GFR (CKD-EPI)NonAf 69 (>60 ml/min/1.73 sqM) Glucose 100 H (74-99) mg/dL Plasma Lactic Acid Jack 0.7 (0.7-2.0) mmol/L Calcium 8.6 (8.4-10.2) mg/dL Total Bilirubin 1.4 H (0.2-1.3) mg/dL AST 22 (17-59) U/L ALT 23 (4-49) U/L Alkaline Phosphatase 71 (38-126) U/L Total Protein 6.5 (6.3-8.2) g/dL Albumin 3.7 (3.5-5.0) g/dL Amylase 43 (30-110) U/L Lipase 96 (23-300) U/L Urine Color Urine Appearance (Clear) Urine pH (5.0-8.0) Ur Specific [place] (1.001-1.035) Urine Protein (Negative) Urine Glucose (UA) (Negative) Urine Ketones (Negative) Urine Blood (Negative) Urine Nitrite (Negative) Urine Bilirubin (Negative) Urine Urobilinogen (<2.0) mg/dL Ur Leukocyte Esterase (Negative) 10/10/21 Range/Units 12:43 WBC (3.8-10.6) k/uL RBC (4.30-5.90) m/uL Hgb (13.0-17.5) gm/dL Hct (39.0-53.0) % MCV (80.0-100.0) fL MCH (25.0-35.0) pg MCHC (31.0-37.0) g/dL RDW (11.5-15.5) % Plt Count (150-450) k/uL MPV Neutrophils % % Lymphocytes % % Monocytes % % Eosinophils % % Basophils % % Neutrophils # (1.3-7.7) k/uL Lymphocytes # (1.0-4.8) k/uL Monocytes # (0-1.0) k/uL Eosinophils # (0-0.7) k/uL Basophils # (0-0.2) k/uL Sodium (137-145) mmol/L Potassium (3.5-5.1) mmol/L Chloride (98-107) mmol/L Carbon Dioxide (22-30) mmol/L Anion Gap mmol/L BUN (9-20) mg/dL Creatinine (0.66-1.25) mg/dL Est GFR (CKD-EPI)AfAm (>60 ml/min/1.73 sqM) Est GFR (CKD-EPI)NonAf (>60 ml/min/1.73 sqM) Glucose (74-99) mg/dL Plasma Lactic Acid Jack (0.7-2.0) mmol/L Calcium (8.4-10.2) mg/dL Total Bilirubin (0.2-1.3) mg/dL AST (17-59) U/L ALT (4-49) U/L Alkaline Phosphatase (38-126) U/L Total Protein (6.3-8.2) g/dL Albumin (3.5-5.0) g/dL Amylase (30-110) U/L Lipase (23-300) U/L Urine Color Yellow Urine Appearance Clear (Clear) Urine pH 7.5 (5.0-8.0) Ur Specific [place] 1.026 (1.001-1.035) Urine Protein Negative (Negative) Urine Glucose (UA) Negative (Negative) Urine Ketones Trace H (Negative) Urine Blood Negative (Negative) Urine Nitrite Negative (Negative) Urine Bilirubin Negative (Negative) Urine Urobilinogen <2.0 (<2.0) mg/dL Ur Leukocyte Esterase Negative (Negative) Disposition Clinical Impression: Acute cholecystitis, Leukocytosis Disposition: ADMITTED IP TO THIS HOSP Is patient prescribed a controlled substance at d/c from ED?: No Referrals: Daren Ventura [Primary Care Provider] - 1-2 days Time of Disposition: 13:48
--- NOTE | 2021-10-10 11:37 | US ---
EXAMINATION TYPE: US gallbladder DATE OF EXAM: 10/10/2021 COMPARISON: NONE CLINICAL HISTORY: pain. Pain exam limitations due to body habitus. EXAM MEASUREMENTS: Liver Length: 20.3 cm Gallbladder Wall: .4 cm CBD: 0.5 cm Right Kidney: 10.5 x 5.6 x 4.2 cm Pancreas: Obscured by bowel gas Liver: Increased attenuation Gallbladder: Large stone seen 3.8 cm. There is likely associated tumefactive sludge, question some p ericholecystic fluid Evidence for sonographic Gonsales's sign: no CBD: wnl Right Kidney: Hypoechoic area seen mid pole 3.3 x 2.1 x 3.4 cm. There is no ascites. IMPRESSION: There are some limitations the exam. Cholelithiasis, correlate for cholecystitis. Correla te for possible metastatic disease, hepatic steatosis, there is hepatomegaly. Probable cortical cyst right kidney, follow-up could be performed to assess for stability.
--- NOTE | 2021-10-10 12:36 | CT ---
EXAMINATION TYPE: CT abdomen pelvis w con DATE OF EXAM: 10/10/2021 COMPARISON: Ultrasound performed earlier same day HISTORY: RT Sided abdominal pain CT DLP: 3854.4 mGycm Automated exposure control for dose reduction was used. TECHNIQUE: Helical acquisition of images was performed from the lung bases through the pelvis. CONTRAST: Performed without Oral Contrast and with IV Contrast, patient injected with 100ml mL of Isovue 300. FINDINGS: LUNG BASES: No significant abnormality is appreciated. LIVER/GB: Enlarged liver measuring 22.3 cm. No definite hepatic focal lesion identified. Severe acute cholecystitis with gallbladder wall thickening, edema and surrounding fat stranding, tiny contained perforation can't be excluded. Large stone is seen apparently impacted at the gallbladder neck measur ing 4.4 cm. No intra or extrahepatic biliary tree dilatation. Prominent maricruz hepatis lymph nodes, po ssibly reactive. PANCREAS: Fatty infiltration of the pancreatic head. SPLEEN: No significant abnormality is seen. ADRENALS: No significant abnormality is seen. KIDNEYS: 3 mm nonobstructing stone at the lower pole of the left kidney. Simple appearing cyst at the lower pole of right kidney without gross suspicious feature. Unremarkable kidneys otherwise. FREE AIR: No free air is visualized. RETROPERITONEAL ADENOPATHY: None visualized REPRODUCTIVE ORGANS: No significant abnormality is seen URINARY BLADDER: No significant abnormality is seen. PELVIC ADENOPATHY: None visualized. OSSEOUS STRUCTURES: No aggressive bone lesion. BOWEL: No significant abnormality is seen. OTHER: Scattered arterial atherosclerotic calcifications. No sizable ascites. Right fat-containing in guinal hernia. IMPRESSION: 4.4 CM STONE IMPACTED AT THE GALLBLADDER NECK WITH SIGNS SUGGESTIVE OF SEVERE ACUTE CHOLECYSTITIS DESCRIBED ABOVE. RECOMMEND URGENT SURGICAL CONSULTATION. OTHER FINDINGS DESCRIBED ABOVE.
[2021-10-10] MEDS ORDERED: PIPERACILLIN-TAZOBACTAM 3.375 GM in SODIUM CHLORIDE 0.9% 100 ML IVPB STA (13:04)
[2021-10-10 13:16] LABS: Appearance,Urine Clear (Clear); Bilirubin,Urine Negative (Negative); Blood,Urine Negative (Negative); Color,Urine Yellow; Glucose,Urine (UA) Negative (Negative); Ketones,Urine Trace (Negative); Leukocyte Esterase,Urine Negative (Negative); Nitrite,Urine Negative (Negative); PH, Urine 7.5 (5.0-8.0); Protein,Urine Negative (Negative); Specific Gravity,Urine 1.026 (1.001-1.035); Urobilinogen,Urine <2.0 mg/dL (<2.0)
[2021-10-10] MEDS ORDERED: NALOXONE 0.4 MG/ML 1 ML VIAL IV PRN (13:45)
[2021-10-10] MEDS ORDERED: HYDROmorphone 0.5 MG/0.5 ML SYRINGE IVP PRN (13:45)
[2021-10-10] MEDS ORDERED: ONDANSETRON 4 MG/2 ML VIAL IVP PRN (13:45)
--- NOTE | 2021-10-10 14:06 | P.GSHP ---
History of Present Illness H&P Date: 10/10/21 CHIEF COMPLAINT: Abdominal pain HISTORY OF PRESENT ILLNESS: This is a 60-year-old male presented to the hospital with complaints of right upper quadrant abdominal pain. He reports pain started Wednesday evening and initially was in the epigastric area. By yesterday the pain had moved to the right upper quadrant. Patient reports that he has increase in pain after eating. He has been having low-grade temps of 99 with a headache. Denies any nausea or vomiting. He reports having flatus and bowel movements. He does report increase in pain with deep breathing. Denies any prior abdominal surgical history. Denies any cardiac history. Patient's computed tomography scan had shown evidence of choledocholithiasis and stress of her severe acute cholecystitis. Patient started IV antibiotics and IV fluids. PAST MEDICAL HISTORY: Hypertension, DVT right leg completed anticoagulation therapy about 1 year ago. Lower extremity cellulitis PAST SURGICAL HISTORY: Tonsillectomy MEDICATIONS: See list. ALLERGIES: See list. SOCIAL HISTORY: No illicit drug use. REVIEW OF SYSTEMS: CONSTITUTIONAL: Denies fever or chills. HEENT: Denies blurred vision, vision changes, or eye pain. Denies hemoptysis CARDIOVASCULAR: Denies chest pain or pressure. RESPIRATORY: No shortness of breath. GASTROINTESTINAL: See HPI for pertinent findings HEMATOLOGIC: Denies bleeding disorders. GENITOURINARY: Denies any blood in urine or increased urinary frequency. SKIN: Denies pruitis. Denies rash. PHYSICAL EXAM: VITAL SIGNS: Reviewed GENERAL: Well-developed in no acute distress. HEENT: No sclera icterus. Extraocular movements grossly intact. Moist buccal mucosa. Head is atraumatic, normocephalic. No nasal drainage. ABDOMEN: Soft. Obese. Nondistended. tenderness with palpation of the right upper quadrant NEUROLOGIC: Alert and oriented. Cranial nerves II through XII grossly intact. LABORATORY DATA: WBC 12.6 hemoglobin 15 platelets 248 sodium 136 potassium 4.1 creatinine 1.16 Lactic acid 0.7 Total bilirubin 1.4 AST 22 ALT 23 alk phos 71 Lipase 96 Urinalysis negative IMAGING: Abdominal ultrasound cholelithiasis, correlate for cholecystitis. Correlate for possible metastatic disease, hepatic steatosis, there is hepatomegaly. Probable cortical cyst right kidney Computed tomography scan abdomen and pelvis showing 4.4 cm stone impacted at the gallbladder neck with signs suggestive of severe acute cholecystitis. Recommend urgent surgical consultation ASSESSMENT: 1. Acute cholecystitis 2. Cholelithiasis with a 4.4 cm stone impacted at the gallbladder neck noted on CAT scan PLAN: -Patient scheduled for laparoscopic cholecystectomy today with Dr. Allen -Keep patient nothing by mouth -Continue IV antibiotics -Continue IV fluids -Continue pain medication as needed -Continue antiemetics as needed Physician Electronic Pagination System Operator note has been reviewed by physician. Signing provider agrees with the documented findings, assessment, and plan of care. Past Medical History Past Medical History: Deep Vein Thrombosis (DVT), Hypertension Additional Past Medical History / Comment(s): lower ext cellulitis History of Any Multi-Drug Resistant Organisms: None Reported Past Surgical History: Tonsillectomy Past Anesthesia/Blood Transfusion Reactions: No Reported Reaction Past Psychological History: No Psychological Hx Reported Smoking Status: Never smoker Past Alcohol Use History: None Reported Past Drug Use History: None Reported - Past Family History Father Family Medical History: Cancer Additional Family Medical History / Comment(s): LUNG Medications and Allergies Home Medications Medication Instructions Recorded Confirmed Type Bisoprolol/Hydrochlorothiazide 1 tab PO DAILY 03/02/19 10/10/21 History [Bisoprolol-Hctz 5-6.25 mg Tab] Losartan Potassium 50 mg PO DAILY 03/02/19 10/10/21 History Multivitamins, Thera [Multivitamin 1 tab PO DAILY 08/29/19 10/10/21 History (formulary)] Ascorbic Acid [Vitamin C] 500 mg PO DAILY 10/10/21 10/10/21 History Cholecalciferol [Vitamin D3 (25 25 mcg PO DAILY 10/10/21 10/10/21 History Mcg = 1000 Iu)] Loratadine [Claritin] 10 mg PO DAILY 10/10/21 10/10/21 History Allergies Allergy/AdvReac Type Severity Reaction Status Date / Time No Known Allergies Allergy Verified 10/10/21 11:23 Surgical - Exam Vital Signs Temp Pulse Resp BP Pulse Ox 98.7 F 85 18 143/81 95 10/10/21 09:32 10/10/21 09:32 10/10/21 09:32 10/10/21 09:32 10/10/21 09:32 Results - Labs 10/10/21 10:24 10/10/21 10:24 Abnormal Lab Results - Last 24 Hours (Table) 10/10/21 10/10/2110/10/22 Range/Units 10:24 10:24 12:43 WBC 12.6 H (3.8-10.6) k/uL Neutrophils # 9.5 H (1.3-7.7) k/uL Monocytes # 1.2 H (0-1.0) k/uL Sodium 136 L (137-145) mmol/L Glucose 100 H (74-99) mg/dL Total Bilirubin 1.4 H (0.2-1.3) mg/dL Urine Ketones Trace H (Negative) Diabetes panel 10/10/21 Range/Units 10:24 Sodium 136 L (137-145) mmol/L Potassium 4.1 (3.5-5.1) mmol/L Chloride 103 (98-107) mmol/L Carbon Dioxide 25 (22-30) mmol/L BUN 13 (9-20) mg/dL Creatinine 1.16 (0.66-1.25) mg/dL Glucose 100 H (74-99) mg/dL Calcium 8.6 (8.4-10.2) mg/dL AST 22 (17-59) U/L ALT 23 (4-49) U/L Alkaline Phosphatase 71 (38-126) U/L Total Protein 6.5 (6.3-8.2) g/dL Albumin 3.7 (3.5-5.0) g/dL Calcium panel 10/10/21 Range/Units 10:24 Calcium 8.6 (8.4-10.2) mg/dL Albumin 3.7 (3.5-5.0) g/dL Pituitary panel 10/10/21 Range/Units 10:24 Sodium 136 L (137-145) mmol/L Potassium 4.1 (3.5-5.1) mmol/L Chloride 103 (98-107) mmol/L Carbon Dioxide 25 (22-30) mmol/L BUN 13 (9-20) mg/dL Creatinine 1.16 (0.66-1.25) mg/dL Glucose 100 H (74-99) mg/dL Calcium 8.6 (8.4-10.2) mg/dL Adrenal panel 10/10/21 Range/Units 10:24 Sodium 136 L (137-145) mmol/L Potassium 4.1 (3.5-5.1) mmol/L Chloride 103 (98-107) mmol/L Carbon Dioxide 25 (22-30) mmol/L BUN 13 (9-20) mg/dL Creatinine 1.16 (0.66-1.25) mg/dL Glucose 100 H (74-99) mg/dL Calcium 8.6 (8.4-10.2) mg/dL Total Bilirubin 1.4 H (0.2-1.3) mg/dL AST 22 (17-59) U/L ALT 23 (4-49) U/L Alkaline Phosphatase 71 (38-126) U/L Total Protein 6.5 (6.3-8.2) g/dL Albumin 3.7 (3.5-5.0) g/dL
[2021-10-10] MEDS: SODIUM CHLORIDE 0.9% 1,000 ML IV SCH ×2 (14:12→20:49)
[2021-10-10] MEDS ORDERED: SODIUM CHLORIDE 0.9% 1,000 ML IV ONE (14:22)
[2021-10-10] MEDS ORDERED: IV FLUID CONTINUATION 1,000 ML IV ONE (16:18)
[2021-10-10] MEDS ORDERED: HEPARIN SODIUM,PORCINE/PF 5,000 UNIT/0.5 ML SYRINGE SQ ONE (16:32)
[2021-10-10] MEDS ORDERED: HEPARIN SODIUM,PORCINE 5,000 UNIT/ML 1 ML VIAL SQ ONE (17:32)
[2021-10-10] MEDS ORDERED: SUCCINYLCHOLINE CHLORIDE VIAL 200 MG/10 ML VIAL IV ONE (17:49)
[2021-10-10] MEDS ORDERED: GLYCOPYRROLATE 0.2 MG/ML 2 ML VIAL ONE (17:49)
[2021-10-10] MEDS ORDERED: ROCURONIUM 10 MG/ML (5 ML VIAL) IV ONE (17:49)
[2021-10-10] MEDS ORDERED: PHENYLEPHRINE-0.9% NACL SYG 1,000 MCG/10 ML SYRINGE ONE (17:49)
[2021-10-10] MEDS ORDERED: PROPOFOL 10 MG/ML 20 ML VIAL IV ONE (17:49)
[2021-10-10] MEDS ORDERED: fentaNYL (PF) 50 MCG/ML 2 ML AMP ONE (17:49)
[2021-10-10] MEDS ORDERED: KETOROLAC 15 MG/ML 1 ML VIAL ONE (17:49)
[2021-10-10] MEDS ORDERED: LIDOCAINE 1% INJ 10MG/ML (20 ML MDV) ONE (17:49)
[2021-10-10] MEDS ORDERED: NEOSTIGMINE 1 MG/ML 10 ML VIAL ONE (17:49)
[2021-10-10] MEDS ORDERED: MIDAZOLAM 2 MG/2 ML VIAL ONE (17:49)
[2021-10-10] MEDS ORDERED: HYDROmorphone (PF) 1 MG/ML ONE (17:49)
[2021-10-10] MEDS ORDERED: LACTATED RINGERS 1,000 ML IV ONE (18:15)
[2021-10-10] MEDS ORDERED: BUPIVACAIN-EPI 0.25%-1:200,000 30 ML VIAL SQ ONE (18:19)
--- NOTE | 2021-10-10 19:01 | P.OP ---
Date of Procedure: 10/10/21 Preoperative Diagnosis: Cholelithiasis Cholecystitis Postoperative Diagnosis: Cholelithiasis Acute cholecystitis Procedure(s) Performed: Laparoscopic cholecystectomy Anesthesia: ARISTEO Surgeon: Anjum Allen Estimated Blood Loss (ml): 25 Pathology: other (Gallbladder) Condition: stable Disposition: PACU Operative Findings: 5 cm gallstone and gallbladder Description of Procedure: The patient was placed on the operating table. The patient received a general endotracheal tube anesthesia. The patients abdomen was prepped and draped in the usual sterile fashion. Through an infraumbilical stab incision, the fascia of the anterior abdominal wall was grasped with a pair of Kochers and then the Veress needle was placed in the peritoneal cavity. Position of the Veress needle was confirmed with positive drop test. The abdomen was then insufflated. After adequate insufflation, the 10 mm trocar was placed in the peritoneal cavity. Following this the laparoscope was placed in the peritoneal cavity. The patient was placed in the head-up, right side up position and then a 5 mm trocar was placed in the right lateral and right subcostal position under direct visualization. A 8 mm trocar was placed in the epigastric position. The gallbladder was grasped in the fundus and infundibulum. Traction on the gallbladder was placed in the lateral and the cephalad positions. The triangle of Calot was visualized.. The cystic duct was bluntly dissected until the union of the cystic duct and common bile duct was seen. A critical view of safety was achieved. The cystic duct was then divided and sealed with the Harmonic scissors. A PDS Endoloop was then placed throughout the cystic duct stump. The cystic artery divided and sealed with the Harmonic scissors. The gallbladder was then removed from the liver bed using H armonic scissors. The gallbladder was then extracted through the epigastric port site. Operative field was checked for any bleeding spots and Harmonic scissors was used to coagulate the liver bed. The abdomen was irrigated. The trocars were removed. The skin was closed using interrupted 3-0 Vicryl suture. Dermabond dressing were applied. The patient tolerated the procedure well.
[2021-10-10] MEDS: PIPERACILLIN-TAZOBACTAM 3.375 GM in SODIUM CHLORIDE 0.9% 100 ML IVPB SCH (22:19)
--- NOTE | 2021-10-10 23:11 | P.CONS ---
History of Present Illness - Reason for Consult Consult date: 10/10/21 - History of Present Illness The patient is a 60-year-old male with a PMH of hypertension who presented to the emergency room with complaints of abdominal pain. The patient was diagnosed with acute cholecystitis and underwent a laparoscopic cholecystectomy earlier today with no immediate postoperative competitions. He was seen postoperatively on the Med-Surg unit. He reported ongoing 4 out of 10 right upper quadrant abdominal pain, nonradiating. Denied any additional complaints. Denied fever, chills, chest pain, shortness of breath, nausea, vomiting. Denies sore throat, headaches, weakness, numbness, tingling. Reports compliance with all his medications at home. Review of systems: Pertinent positives and negatives as discussed in HPI, a complete review of systems was performed and all other systems are negative. Physical examination: General: non toxic, no distress, appears at stated age, morbidly obese Derm: no unusual rashes/lesions no unusual ecchymoses, warm, dry Head: atraumatic, normocephalic, symmetric Eyes: EOMI, no lid lag, anicteric sclera, pupils equal round reactive to light ENT: Nose and ears atraumatic, no thrush, no pharyngeal erythema Neck: No thyromegaly, no cervical lymphadenopathy, trachea midline, supple Mouth: no lip lesion, mucus membranes moist Cardiovascular: S1S2 reg, no murmur, positive posterior tibial pulse bilateral, no edema, capillary refill less than 2 seconds Lungs: CTA bilateral, no rhonchi, no rales , no accessory muscle use Abdominal: soft, laparoscopic incisions clean and dry, no guarding Ext: no gross muscle atrophy, muscle strength 5 out of 5 in all 4 extremities grossly, no contractures, Neuro: CN II-XI grossly intact, light touch intact all 4 extremities, finger to nose within normal limits, Psych: Alert, oriented, appropriate affect Assessment/plan Hypertension -Continue with home meds Acute cholecystitis -Management including pain control as per the primary surgery service We appreciate this opportunity to be involved in this patient's care. We will follow the patient with you. For any further questions, please not hesitate to contact the sound inpatient team. Past Medical History Past Medical History: Deep Vein Thrombosis (DVT), Hypertension Additional Past Medical History / Comment(s): DVT L lower extremity, bilateral lower extremity cellulitis, R lower leg cellulitis with sepsis, stasis dermatitis, seasonal allergies. History of Any Multi-Drug Resistant Organisms: None Reported Past Surgical History: Tonsillectomy Past Anesthesia/Blood Transfusion Reactions: No Reported Reaction Smoking Status: Never smoker - Past Family History Father Family Medical History: Cancer Additional Family Medical History / Comment(s): LUNG Mother Family Medical History: Thyroid Disorder Medications and Allergies Home Medications Medication Instructions Recorded Confirmed Type Bisoprolol/Hydrochlorothiazide 1 tab PO DAILY 03/02/19 10/10/21 History [Bisoprolol-Hctz 5-6.25 mg Tab] Losartan Potassium 50 mg PO DAILY 03/02/19 10/10/21 History Multivitamins, Thera [Multivitamin 1 tab PO DAILY 08/29/19 10/10/21 History (formulary)] Ascorbic Acid [Vitamin C] 500 mg PO DAILY 10/10/21 10/10/21 History Cholecalciferol [Vitamin D3 (25 25 mcg PO DAILY 10/10/21 10/10/21 History Mcg = 1000 Iu)] Loratadine [Claritin] 10 mg PO DAILY 10/10/21 10/10/21 History Allergies Allergy/AdvReac Type Severity Reaction Status Date / Time No Known Allergies Allergy Verified 10/10/21 11:23 Physical Exam Vitals: Vital Signs Temp Pulse Pulse Pulse Resp BP BP 10/10/21 20:50 98.3 F 63 16 149/86 10/10/21 19:38 67 18 135/63 10/10/21 19:23 70 18 140/63 10/10/21 19:08 98.6 F 86 14 140/65 10/10/21 16:17 97.2 F L 72 17 10/10/21 15:00 98.5 F 68 10/10/21 14:00 60 18 94/54 10/10/21 09:32 98.7 F 85 18 143/81 BP Pulse Ox 10/10/21 20:50 92 L 10/10/21 19:38 96 10/10/21 19:23 99 10/10/21 19:08 98 10/10/21 16:17 116/59 94 L 10/10/21 15:00 119/73 97 10/10/21 14:00 94 L 10/10/21 09:32 95 Intake and Output 10/10/21 10/10/21 10/10/21 06:59 14:59 22:59 Intake Total 1580 Output Total 10 Balance 1570 Intake: IV 1450 Intake, IV Titration 130 Amount Sodium Chloride 0.9% 1, 130 000 ml @ 130 mls/hr IV . Q7H42M [facility] Rx#:[id number] Output: Estimated Blood Loss 10 Other: Weight 158.757 kg Results CBC & Chem 7: 10/10/21 10:24 10/10/21 10:24 Labs: Abnormal Lab Results - Last 24 Hours (Table) 10/10/21 10/10/21 10/10/21 Range/Units 10:24 10:24 12:43 WBC 12.6 H (3.8-10.6) k/uL Neutrophils # 9.5 H (1.3-7.7) k/uL Monocytes # 1.2 H (0-1.0) k/uL Sodium 136 L (137-145) mmol/L Glucose 100 H (74-99) mg/dL Total Bilirubin 1.4 H (0.2-1.3) mg/dL Urine Ketones Trace H (Negative)
[2021-10-11] MEDS: HYDROmorphone 1 MG/ML 1 ML SYRINGE IVP PRN ×3 (00:46→13:17)
[2021-10-11] MEDS: SODIUM CHLORIDE 0.9% 1,000 ML IV SCH ×3 (04:23→21:21)
[2021-10-11] MEDS: PIPERACILLIN-TAZOBACTAM 3.375 GM in SODIUM CHLORIDE 0.9% 100 ML IVPB SCH ×3 (06:12→21:22)
[2021-10-11] MEDS: LOSARTAN 50 MG TAB PO SCH (08:46)
[2021-10-11] MEDS: ENOXAPARIN 40 MG/0.4 ML SYRINGE SQ SCH (08:46)
[2021-10-11] MEDS: BISOPROLOL-HCTZ 5-6.25 MG 1 EACH TAB PO SCH (08:46)
[2021-10-11] MEDS ORDERED: SODIUM CHLORIDE 0.65% NASAL SPRAY 44 ML BTL NASAL PRN (09:58)
[2021-10-11] MEDS: LORATADINE 10 MG TAB PO SCH (10:21)
--- NOTE | 2021-10-11 11:32 | P.PN ---
Progress Note - Text Progress Note Date: 10/11/21 The patient has some minimal complaints of right quadrant pain. He is postoperative day 1 from laparoscopic ostectomy for acute cholecystitis. Patient had a very large gallstone. On exam vital signs are stable. Abdomen soft. Incisions clean and intact. Patient will receive supportive care. We'll Q IV antibiotics today. We discussed a discharge home tomorrow.
[2021-10-11 12:18] LABS: HCT 42.9 % (39.0-53.0); HGB 14.1 gm/dL (13.0-17.5); MCH 29.6 pg (25.0-35.0); MCHC 32.8 g/dL (31.0-37.0); MCV 90.1 fL (80.0-100.0); Mean Platelet Volume 7.7; Platelet Count 240 k/uL (150-450); RBC 4.76 m/uL (4.30-5.90); RDW 13.3 % (11.5-15.5); WBC 9.9 k/uL (3.8-10.6)
[2021-10-11 12:24] LABS: ALT 51 U/L (4-49); AST 44 U/L (17-59); African American GFR (CKD) 86 (>60 ml/min/1.73 sqM); Albumin 3.3 g/dL (3.5-5.0); Albumin/Globulin Ratio 1.2; Alkaline Phosphatase 82 U/L (38-126); Anion Gap 7 mmol/L; Blood Urea Nitrogen 17 mg/dL (9-20); Calcium 8.2 mg/dL (8.4-10.2); Carbon Dioxide 27 mmol/L (22-30); Chloride 102 mmol/L (98-107); Globulin 2.7 g/dL; Glucose 111 mg/dL (74-99); Magnesium 2.1 mg/dL (1.6-2.3); Non-African American GFR(CKD) 74 (>60 ml/min/1.73 sqM); Potassium 4.1 mmol/L (3.5-5.1); Sodium 136 mmol/L (137-145); Total Bilirubin 1.2 mg/dL (0.2-1.3)
[2021-10-11 13:28] VITALS: BMI 54.8
[2021-10-11] MEDS ORDERED: ACETAMINOPHEN TAB 325 MG TAB PO PRN (16:01)
--- NOTE | 2021-10-11 16:03 | P.PN ---
Subjective Progress Note Date: 10/11/21 (delayed charting seen at 0930) Principal diagnosis: abdominal pain The patient is a 60-year-old male withf hypertension who presented to the emergency room with complaints of abdominal pain. The patient was diagnosed with acute cholecystitis and underwent a laparoscopic cholecystectomy earlier today with no immediate postoperative competitions. Patient seen and examined at bedside. He reports he is still having some abdominal pain. Denies any nausea, lightheadedness, chest pain, shortness of breath. He has not yet passed gas or had a bowel movement. present at bedside all questions answered. General: non toxic, no distress, appears at stated age but obesity Derm: warm, dry Head: atraumatic, normocephalic, symmetric Eyes: EOMI, no lid lag, anicteric sclera Mouth: no lip lesion, mucus membranes moist Cardiovascular: S1S2 reg, no murmur, positive posterior tibial pulse bilateral, Lungs: Decreased breath sounds bilateral, no rhonchi, no rales , no accessory muscle use Abdominal: soft, tender to palpation diffusely, no guarding, no appreciable organomegaly Ext: no gross muscle atrophy, no edema, no contractures Neuro: CN II-XI grossly intact, no focal neuro deficits Psych: Alert, oriented, appropriate affect Assessment/plan: Acute cholecystitis -Status post endoscopic cholecystectomy -On Zosyn -Surgery recommendations -Frequent ambulation -Pain control antiemetics Hypertension -Resume home this post fall hydrochlorothiazide -Resume losartan -Follow blood pressures Chronic sinusitis -Resume Claritin -Start Flonase Morbid obesity with BMI 54.8 -Structured outpatient weight loss Thank you for allowing us to participate in the care of this pleasant patient. Do not hesitate to contact us with questions. Someone can be reached from the [facility] hospitalist group all hours of the day at [phone] or via perfect serve. Objective - Vital Signs Vital signs: Vital Signs Temp 98.4 F 10/11/21 12:00 Pulse 72 10/11/21 12:00 Resp 18 10/11/21 12:00 BP 129/71 10/11/21 12:00 Pulse Ox 96 10/11/21 12:00 Intake & Output 10/10/21 10/11/21 10/11/21 18:59 06:59 18:59 Intake Total 1330 2030 Output Total 10 300 Balance 1320 1730 Weight 158.757 kg 158.757 kg Intake: IV 1200 250 Intake, IV Titration 130 1060 Amount Piperacillin-Tazobactam 3 100 .375 gm In Sodium Chloride 0.9% 100 ml @ 25 mls/hr IVPB Q8H [facility] Rx#: [id number] Sodium Chloride 0.9% 1, 130 960 000 ml @ 130 mls/hr IV . Q7H42M [facility] Rx#:[id number] Oral 720 Output: Urine 300 Estimated Blood Loss 10 Other: # Voids 1 - Labs CBC & Chem 7: 10/11/21 11:05 10/11/21 11:05 Labs: Abnormal Lab Results - Last 24 Hours (Table) 10/11/21 Range/Units 11:05 Sodium 136 L (137-145) mmol/L Glucose 111 H (74-99) mg/dL Calcium 8.2 L (8.4-10.2) mg/dL ALT 51 H (4-49) U/L Total Protein 6.0 L (6.3-8.2) g/dL Albumin 3.3 L (3.5-5.0) g/dL
[2021-10-11] MEDS: HYDROcodone/APAP 5-325MG 1 EACH TAB PO PRN (18:06)
[2021-10-12] MEDS: HYDROcodone/APAP 5-325MG 1 EACH TAB PO PRN (02:54)
[2021-10-12] MEDS: PIPERACILLIN-TAZOBACTAM 3.375 GM in SODIUM CHLORIDE 0.9% 100 ML IVPB SCH (06:14)
[2021-10-12] MEDS: BISOPROLOL-HCTZ 5-6.25 MG 1 EACH TAB PO SCH (08:59)
[2021-10-12] MEDS: LORATADINE 10 MG TAB PO SCH (08:59)
[2021-10-12] MEDS: LOSARTAN 50 MG TAB PO SCH (08:59)
[2021-10-12] MEDS: ENOXAPARIN 40 MG/0.4 ML SYRINGE SQ SCH (09:00)
[2021-10-12] MEDS: SODIUM CHLORIDE 0.9% 1,000 ML IV SCH (09:05)
[2021-10-12 12:28] VITALS: BP 109/66; PULSE 73; RESP 18; TEMP 98.3
--- NOTE | 2021-10-12 12:48 | P.PN ---
Progress Note - Text Progress Note Date: 10/12/21 Patient's feeling well. He wished to go home. On exam vital signs are stable. Abdomen soft. Incision sites are clean and intact. Patiently discharged home today. He'll follow-up next week.
== END 2021-10-12 17:11 | disposition home or self-care (01) ==
LOC: EC 09:32 → 5NMEDONC 13:25
PROVIDERS: ADMIT Surgery; ATTEND Surgery
DX: K80.00 Calculus of gallbladder with acute cholecystitis without obstruction (principal); I10 Essential (primary) hypertension; Z86.718 Personal history of other venous thrombosis and embolism; Z98.890 Other specified postprocedural states; Z80.1 Family history of malignant neoplasm of trachea, bronchus and lung; J32.9 Chronic sinusitis, unspecified; E66.01 Morbid (severe) obesity due to excess calories; Z68.43 Body mass index [BMI] 50.0-59.9, adult; Z87.2 Personal history of diseases of the skin and subcutaneous tissue; Z86.19 Personal history of other infectious and parasitic diseases; Z79.01 Long term (current) use of anticoagulants; Z79.899 Other long term (current) drug therapy; Z86.39 Personal history of other endocrine, nutritional and metabolic disease
CPT/HCPCS: 96374; 96375; 99285; 36415; 88304; 80053 ×2; 82150; 83605; 83690; 83735; 85025; 85027; 81003; 87040; 76705; 74177; 47562; G0378 ×3; J2543 ×3; J2250; J0330; J1644; J2710; J2405; J2001; J1650 ×2; J3010; J1170 ×3; J1885; J2370; J2704; Q9967

== ENCOUNTER 2022-09-26 15:12 | Emergency (ER) | payer MEDICAID, OTHER ==
[2022-09-26 15:23] VITALS: RESP 20; TEMP 99
[2022-09-26] MEDS ORDERED: IBUPROFEN 800 MG TAB PO STA (15:53)
--- NOTE | 2022-09-26 16:05 | ED ---
Extremity Problem HPI - General Chief complaint: Extremity Problem,Nontraumatic Stated complaint: poss cellulitis - lt leg Time Seen by Provider: 09/26/22 15:29 Source: patient Mode of arrival: ambulatory Limitations: no limitations - History of Present Illness Initial comments: Patient is a 61-year-old male who presents to the emergency department with a chief complaint of left leg pain. Started yesterday. Pain is in the lower leg including the calf. It mostly occurs with walking. Patient has history of recurrent cellulitis in this leg. He also has history of DVT in his leg. Patient states when his cellulitis begins he has chills and headache which he currently has now. Patient has fever last night. He denies nausea and vomiting. Denies history of MRSA. Denies hormone replacement, long car rides, airplane travel, surgical interventions, known cancers, family history of clotting, tobacco use - Related Data Home Medications Medication Instructions Recorded Confirmed Bisoprolol/Hydrochlorothiazide 1 tab PO DAILY 03/02/19 09/26/22 [Bisoprolol-Hctz 5-6.25 mg Tab] Losartan Potassium 50 mg PO DAILY 03/02/19 09/26/22 Multivitamins, Thera [Multivitamin 1 tab PO DAILY 08/29/19 09/26/22 (formulary)] Ascorbic Acid [Vitamin C] 500 mg PO DAILY 10/10/21 09/26/22 Cholecalciferol [Vitamin D3 (25 25 mcg PO DAILY 10/10/21 09/26/22 Mcg = 1000 Iu)] Loratadine [Claritin] 10 mg PO DAILY 10/10/21 09/26/22 Triamcinolone 0.1% Cream [Kenalog 1 applicatio TOPICAL BID PRN 09/26/22 09/26/22 0.1% Cream] Previous Rx's Medication Instructions Recorded Cephalexin [Keflex] 500 mg PO Q6HR #40 cap 09/26/22 Ibuprofen [Motrin] 800 mg PO Q8H PRN #30 tab 09/26/22 Allergies Allergy/AdvReac Type Severity Reaction Status Date / Time No Known Allergies Allergy Verified 09/26/22 16:35 Review of Systems ROS Statement: Those systems with pertinent positive or pertinent negative responses have been documented in the HPI. ROS Other: All systems not noted in ROS Statement are negative. Past Medical History Past Medical History: Deep Vein Thrombosis (DVT), Hypertension Additional Past Medical History / Comment(s): DVT L lower extremity, bilateral lower extremity cellulitis, R lower leg cellulitis with sepsis, stasis dermatitis, seasonal allergies. History of Any Multi-Drug Resistant Organisms: None Reported Past Surgical History: Tonsillectomy Past Anesthesia/Blood Transfusion Reactions: No Reported Reaction Past Psychological History: No Psychological Hx Reported Smoking Status: Never smoker Past Alcohol Use History: None Reported Past Drug Use History: None Reported - Past Family History Father Family Medical History: Cancer Additional Family Medical History / Comment(s): LUNG Mother Family Medical History: Thyroid Disorder General Exam Limitations: no limitations General appearance: alert, in no apparent distress Head exam: Present: atraumatic, normocephalic, normal inspection Respiratory exam: Present: normal lung sounds bilaterally. Absent: respiratory distress, wheezes, rales, rhonchi, stridor Cardiovascular Exam: Present: regular rate, normal rhythm, normal heart sounds. Absent: systolic murmur, diastolic murmur, rubs, gallop, clicks Extremities exam: Present: other (erythema to left carbajal which spreads around to the calf with blanching. tenderness to palpation including the calf. The lower extremity is warm. Neurovascularly intact. Full ROM) Neurological exam: Present: alert, oriented X3, CN II-XII intact Psychiatric exam: Present: normal affect, normal mood Skin exam: Present: warm, dry, intact, normal color. Absent: rash Course Vital Signs 09/26/22 09/26/22 09/26/22 15:20 16:07 17:00 Temperature 99 F Pulse Rate 79 75 Respiratory 20 20 20 Rate Blood Pressure 124/71 137/68 O2 Sat by Pulse 96 97 96 Oximetry Medical Decision Making - Medical Decision Making Was pt. sent in by a medical professional or institution (, PA, PROFESSIONAL WRESTLER, urgent care, hospital, or half-way...) When possible be specific @ -No Did you speak to anyone other than the patient for history (EMS, parent, family, police, friend...)? What history was obtained from this source @ -No Did you review nursing and triage notes (agree or disagree)? Why? @ -I reviewed and agree with nursing and triage notes Were old charts reviewed (outside hosp., previous admission, EMS record, old EKG, old radiological studies, urgent care reports/EKG's, half-way records)? Report findings @ -No old charts were reviewed Differential Diagnosis (chest pain, altered mental status, abdominal pain women, abdominal pain men, vaginal bleeding, weakness, fever, dyspnea, syncope, headache, dizziness, GI bleed, back pain, seizure, CVA, palpatations, mental health)? @ -Cellulitis, dependent edema, DVT EKG interpreted by me (3pts min.). @ -As above X-rays interpreted by me (1pt min.). @ -None done CT interpreted by me (1pt min.). @ -None done U/S interpreted by me (1pt. min.). @ -.No. Ultrasound report is negative for acute DVT of LLE. What testing was considered but not performed or refused? (CT, X-rays, U/S, labs)? Why? @ -None What meds were considered but not given or refused? Why? @ -None Did you discuss the management of the patient with other professionals (professionals i.e. , PA, PROFESSIONAL WRESTLER, lab, RT, psych nurse, social work msw, software engineer web applications, teacher, ground nuclear weapons assembly officer, trimming caser)? Give summary @ -No Was smoking cessation discussed for >3mins.? @ -No Was critical care preformed (if so, how long)? @ -No Were there social determinants of health that impacted care today? How? (Homelessness, low income, unemployed, alcoholism, drug addiction, transportation, low edu. Level, literacy, decrease access to med. care, fci, rehab)? @ -No Was there de-escalation of care discussed even if they declined (Discuss DNR or withdrawal of care, Hospice)? DNR status @ -No What co-morbidities impacted this encounter? (DM, HTN, Smoking, COPD, CAD, Cancer, CVA, ARF, Chemo, Hep., AIDS, mental health diagnosis, sleep apnea, morbid obesity)? @ -None Was patient admitted / discharged? Hospital course, mention meds given and route, prescriptions, significant lab abnormalities, going to OR and other pertinent info. @ -Patient presenting with LLE pain. Physical exam consistent with early cellulitis. Currently afebrile. No nausea and vomiting. US negative for acute DVT. Patient will be placed on antibiotics. He will be discharged with strict return parameters. Undiagnosed new problem with uncertain prognosis? @ -No Drug Therapy requiring intensive monitoring for toxicity (Heparin, Nitro, Insulin, Cardizem)? @ -No Were any procedures done? @ -No Diagnosis/symptom? @ -cellulitis Acute, or Chronic, or Acute on Chronic? @ -acute Uncomplicated (without systemic symptoms) or Complicated (systemic symptoms)? @ -complicated Side effects of treatment? @ -No Exacerbation, Progression, or Severe Exacerbation? @ -No Poses a threat to life or bodily function? How? (Chest pain, [place], [place], pneumonia, PE, COPD, DKA, ARF, appy, cholecystitis, CVA, Diverticulitis, Homicidal, Suicidal, threat to staff... and all critical care pts) @ -No Dr. Medrano is my attending Disposition Clinical Impression: Cellulitis Disposition: HOME SELF-CARE Condition: Good Instructions (If sedation given, give patient instructions): Cellulitis (ED) Additional Instructions: Take antibiotic as directed.Follow up with PCP in 1-2 days. Return to the emergency department if you experience new, concerning, or worsening symptoms. Prescriptions: Cephalexin [Keflex] 500 mg PO Q6HR #40 cap Ibuprofen [Motrin] 800 mg PO Q8H PRN #30 tab PRN Reason: Pain Is patient prescribed a controlled substance at d/c from ED?: No Referrals: Jasper Moses MD [Primary Care Provider] - 1-2 days
--- NOTE | 2022-09-26 17:10 | US ---
EXAMINATION TYPE: US venous doppler duplex LE LT DATE OF EXAM: 09/26/2022 4:57 PM COMPARISON: 04/16/2019 CLINICAL HISTORY: calf pain. Pt states left leg pain, h/o DVT, currently not on blood thinners SIDE PERFORMED: Left TECHNIQUE: The lower extremity deep venous system is examined utilizing real time linear array sonog morgan with graded compression, doppler sonography and color-flow sonography. VESSELS IMAGED: Common Femoral Vein Deep Femoral Vein Greater Saphenous Vein * Femoral Vein Popliteal Vein Small Saphenous Vein * Proximal Calf Veins (* superficial vessels) Left Leg: Negative for acute DVT, probable chronic, non-occluding thrombus within left popliteal vei ns, also enlarged lymph nodes within left groin, all similar findings to prior IMPRESSION: There is enlarged left inguinal lymph nodes that measure up to 4.5 x 2 cm. No evidence of acute deep vein thrombosis. There is evidence for some chronic popliteal deep vein thrombosis. Ingui nal lymph node increased in size compared to old exams
[2022-09-26] MEDS ORDERED: CEPHALEXIN 500 MG CAP PO STA (17:12)
[2022-09-26 17:20] VITALS: BP 137/68; PULSE 75
[2022-09-26] MEDS ORDERED: CEPHALEXIN 500MG STARTER PACK 4 CAP BTL PO STA ×2 (17:35→17:42)
== END 2022-09-26 17:55 | disposition home or self-care (01) ==
LOC: EC 15:12
DX: L03.116 Cellulitis of left lower limb (principal); I10 Essential (primary) hypertension; Z79.899 Other long term (current) drug therapy
CPT/HCPCS: 99284

== ENCOUNTER 2023-05-28 12:23 | Day surgery (SDC) | payer OTHER ==
[2023-05-26 10:37] VITALS: BMI 54.7
[~2023-05-28 12:23] MED LIST: LACTATED RINGERS 1,000 ML IV SCH; LIDOCAINE 1% (10MG/ML) FOR IV START INTRADERMA PRN
[2023-05-28 13:36] VITALS: TEMP 97.6
[2023-05-28] MEDS ORDERED: PROPOFOL 10 MG/ML 20 ML VIAL IV ONE (14:25)
--- NOTE | 2023-05-28 14:40 | P.PCN ---
Date of Procedure: 05/28/23 Procedure(s) Performed: BRIEF HISTORY: Patient is a 62-year-old pleasant white male scheduled for an elective colonoscopy as a part of screening for colon cancer. PROCEDURE PERFORMED: Colonoscopy. PREOPERATIVE DIAGNOSIS: Screening for colon cancer. IV sedation per Anesthesia. PROCEDURE: After informed consent was obtained, the patient, was brought into the endoscopy unit. IV sedation was administered by Anesthesia under continuous monitoring. Digital rectal examination was normal. Initially the Olympus CF-160 flexible video colonoscope was then inserted in the rectum, gradually advanced into the cecum without any difficulty. Careful examination was performed as the scope was gradually being withdrawn. Ileocecal valve and the appendiceal orifice were visualized and appeared normal. Prep was fair.. Mucosa of the cecum, ascending colon, transverse colon, descending colon, sigmoid colon, and rectum appeared normal. Retroflexion was performed in the rectum and no lesions were seen. The patient tolerated the procedure well. IMPRESSION: Normal-appearing colon from rectum to cecum with no evidence of colorectal neoplasia . RECOMMENDATIONS: Findings of this examination were discussed with the patient as well as his family. He was advised to have a repeat screening colonoscopy in 10 years..
[2023-05-28 15:20] VITALS: BP 124/78; PULSE 65; RESP 16
== END 2023-05-28 15:21 | disposition home or self-care (01) ==
LOC: ORWHC2ENDO 12:23
PROVIDERS: ATTEND Internal Medicine Gastroenterology
DX: Z12.11 Encounter for screening for malignant neoplasm of colon (principal); I10 Essential (primary) hypertension; I82.409 Acute embolism and thrombosis of unspecified deep veins of unspecified lower extremity; G47.33 Obstructive sleep apnea (adult) (pediatric); Z79.899 Other long term (current) drug therapy

== ENCOUNTER → 2023-08-13 | Outpatient (CLI) | payer OTHER ==
[2023-08-13 15:58] LABS: Basophils # (A) 0.05 X 10*3/uL (0.00-0.10); Basophils % (A) 0.8 %; Eosinophils # (A) 0.29 X 10*3/uL (0.04-0.35); Eosinophils % (A) 4.5 %; HCT 42.6 % (39.6-50.0); HGB 14.1 g/dL (13.0-17.0); Lymphocytes # (A) 1.65 X 10*3/uL (0.90-5.00); Lymphocytes % (A) 25.7 %; MCH 28.9 pg (27.0-32.0); MCHC 33.1 g/dL (32.0-37.0); MCV 87.3 FL (80.0-97.0); Mean Platelet Volume 9.7 FL (9.5-12.2); Monocytes % (A) 9.3 %; NRBC Per 100 WBC 0 X 10*3/uL (0.00-0.01); Neutrophils # (A) 3.81 X 10*3/uL (1.80-7.70); Neutrophils % (A) 59.4 %; Platelet Count 270 X 10*3/uL (140-440); RBC 4.88 X 10*6/uL (4.40-5.60); RDW 12.8 % (11.5-14.5); WBC 6.42 X 10*3/uL (4.50-10.00)
[2023-08-13 16:46] LABS: ALT 37 U/L (10-49); AST 27 U/L (14-35); Albumin/Globulin Ratio 1.74 Ratio (1.60-3.17); Alkaline Phosphatase 74 U/L (41-126); BUN/Creat Ratio 12.25 Ratio (12.00-20.00); Blood Urea Nitrogen 14.7 mg/dL (9.0-27.0); Calcium 9.3 mg/dL (8.7-10.3); Carbon Dioxide 27.9 mmol/L (21.6-31.8); Chloride 103 mmol/L (96-109); Chol/HDL Ratio 4.57 Ratio; Globulin 2.3 g/dL (1.6-3.3); Glucose 98 mg/dL (70-110); LDL Cholesterol,Calculated 91.4 mg/dL (0.0-131.0); Potassium 4.3 mmol/L (3.5-5.5); Sodium 140 mmol/L (135-145); Total Bilirubin 0.6 mg/dL (0.3-1.2); Total Protein 6.3 g/dL (6.2-8.2)
== END | disposition home or self-care (01) ==
LOC: LABWHC1 10:42
PROVIDERS: ATTEND Family Medicine
DX: Z00.00 Encounter for general adult medical examination without abnormal findings (principal); E66.01 Morbid (severe) obesity due to excess calories; N40.0 Benign prostatic hyperplasia without lower urinary tract symptoms; R97.20 Elevated prostate specific antigen [PSA]; Z68.44 Body mass index [BMI] 60.0-69.9, adult
CPT/HCPCS: 36415; 80053; 80061; 83036; 84153; 84443; 85025

== ENCOUNTER → 2024-05-02 | Outpatient (CLI) | payer OTHER | LOC: LABWHC1 13:01 | PROVIDERS: ATTEND Urology | DX: R97.20 Elevated prostate specific antigen [PSA] (principal) | CPT/HCPCS: 36415; 84153 ==

== ENCOUNTER → 2024-11-13 | Outpatient (CLI) | payer OTHER | END | disposition home or self-care (01) | LOC: LABWHC1 11:48 | PROVIDERS: ATTEND Urology | DX: R97.20 Elevated prostate specific antigen [PSA] (principal) | CPT/HCPCS: 36415; 84153 ==

== ENCOUNTER → 2025-01-16 | Outpatient (CLI) | payer OTHER ==
--- NOTE | 2025-01-16 08:12 | MR ---
EXAMINATION TYPE: MR Prostate wo/w con DATE OF EXAM: 01/16/2025 6:55 AM COMPARISON: None. CLINICAL INDICATION: Male, 64 years old with history of R97.20 ELEVATED PROSTATE SPECIFIC ANTIGEN [PS A]; Elevated PSA. TECHNIQUE: Multi-planar, multi-sequence imaging of the pelvis is performed prior to and following the uncomplicated administration of bolus intravenous gadolinium. IV Contrast: 17 mL Gadobutrol Interpretive Criteria: PI-RADS v2.1 SERUM PSA: 05/2024=6.8, 11/2024=8.9 SURGICAL PATHOLOGY: No data available. FINDINGS: Prostatic dimensions: 5.2 x 6.5 x 4.3 cm. Ellipsoid Volume:76.10 (PSA density=0.12 ng/mL/mL) CENTRAL GLAND (Central and Transition Zones/CZ+TZ): Multiple bilateral, heterogenous appearing hypertrophic stromal nodules, without suspicious lesion. M edian lobe hypertrophy with protrusion into the base of the bladder. (PI-RADS 2) PERIPHERAL ZONE (PZ): Bilateral linear, indistinct wedgelike areas of low ADC, and low T2 signal, No evidence of masslike a bnormality, or localized perfusional hypervascularity, to further suggest a focus of clinically signi ficant prostate cancer. (PI-RADS 2) SEMINAL VESICLES (SV): Symmetric and unremarkable. PERIPROSTATIC TISSUES: Unremarkable. LYMPH NODES: No enlarged pelvic lymph node. Nonenlarged lymph nodes in the external iliac chains bilaterally measu ring up to 9 mm on the right and 6 mm on the left. REMAINING PELVIS: Bladder wall is within normal limits given distention. No abnormal free or organized intrapelvic fluid collection. No pathologic bowel dilation or mural thickening. Bilateral fat containing inguinal hernias. OSSEOUS STRUCTURES: No suspicious osseous abnormality. IMPRESSION: 1. No specific features for high-risk prostate cancer. Maximum PI-RADS score: 2. 2. Moderate BPH, estimated gland volume 76.10 (PSA density=0.12 ng/mL/mL) 3. No suspicious osseous lesion. No lymphadenopathy. No evidence of prostate adenocarcinoma involving the periprostatic tissues. [facility], , 01/16/2025 8:09 AM
== END | disposition home or self-care (01) ==
LOC: RADMRIMAIN 05:51
PROVIDERS: ATTEND Urology
DX: N40.0 Benign prostatic hyperplasia without lower urinary tract symptoms (principal); R97.20 Elevated prostate specific antigen [PSA]
CPT/HCPCS: 72197; A9585